=== PATIENT | female | born 1955 | race Caucasian/White ===

== ENCOUNTER 2024-05-18 10:15 | Emergency (ER) | payer MEDICARE, OTHER, SELFPAY ==
--- NOTE | 2024-05-18 10:17 | XRR_ITS ---
PROCEDURE INFORMATION: Exam: XR Right Hip Exam date and time: 05/18/2024 11:09 AM Age: 68 years old Clinical indication: Hip pain; Right hip TECHNIQUE: Imaging protocol: Radiologic exam of the right hip. Views: 1 view hip with pelvis when performed. COMPARISON: No relevant prior studies available. FINDINGS: Bones/joints: No acute fracture or malalignment. No worrisome lytic or blastic lesion. No cortical erosion or periosteal reaction. Mild right hip joint space narrowing and osteophyte formation. Soft tissues: Normal. XR/XR hip RT 2-3V wo/w pel* [id number] IMPRESSION: 1. No acute findings. 2. Mild right hip osteoarthritis.
[2024-05-18 10:35] VITALS: BP 144/69; PULSE 71; RESP 18; TEMP 36.8; O2SAT 99; BMI 28.0
--- NOTE | 2024-05-18 10:39 | XRR_ITS ---
PROCEDURE INFORMATION: Exam: XR Right Knee Exam date and time: 05/18/2024 11:04 AM Age: 68 years old Clinical indication: Pain; Knee; Right; Additional info: Knee pain TECHNIQUE: Imaging protocol: Radiologic exam of the right knee. Views: 3 views. COMPARISON: No relevant prior studies available. FINDINGS: Bones/joints: No acute fracture or malalignment. Cwlo-tc-[id number] tricompartmental joint space narrowing and osteophyte formation, most prominently in the patellofemoral compartment. Soft tissues: No joint effusion. No soft tissue abnormality. XR/XR knee RT 3V* [id number] IMPRESSION: 1. No acute abnormality. 2. Spng-sy-rigycfag knee osteoarthritis.
[2024-05-18] MEDS: HYDROcodone-acetaminophen 5-325 mg Tablet 1 TAB PO (10:42)
--- NOTE | 2024-05-18 10:47 | ED_ITS ---
HPI - Extremity Problem General: Chief complaint: Extremity Problem,Nontraumatic Stated complaint: rt hip pain Time Seen by Provider: 05/18/24 10:32 Source: patient Mode of arrival: ambulatory Limitations: no limitations History of Present Illness: 68-year-old female states that she has c hronic hip pain states she sees an orthopedist in [place] has had an MRI states she has not qualified for s urgery but states that over the last 5 to 6 days she has been having right knee pain now as well states pain sharp in nature seems to radiate in her hip states its much worse with ambulation she really has no pain at rest denies any fevers denies any injury Associated symptoms: Deny chest pain, fever(s) or rash Related Data Home Medications Medication Instructions Recorded Confirmed lisinopril 10 mg tablet 10 mg PO DAILY 05/18/24 05/18/24 meloxicam 15 mg tablet 15 mg PO DAILY 05/18/24 05/18/24 omeprazole 20 mg capsule,delayed 20 mg PO DAILY 05/18/24 05/18/24 release rosuvastatin 5 mg tablet 5 mg PO DAILY 05/18/24 05/18/24 Previous Rx's Medication Instructions Recorded naproxen 500 mg tablet (Naprosyn) 500 mg PO BID PRN pain #20 tabs 05/18/24 Allergies Allergy/AdvReac Type Severity Reaction Status Date / Time No Known Allergies Allergy Verified 05/18/24 10:39 Review of Systems Const: Denies: fever(s), chills, body aches or change in appetite ENMT: Denies: throat pain or dental pain Card: Denies: chest pain Resp: Denies: dyspnea GI: Denies: abdominal pain, nausea, vomiting or diarrhea Musc: Reports: extremity pain; Denies: neck pain or back pain Skin/Breast: Denies: rash Neuro: Denies: headache(s) Physical Exam Const: COMMON NORMALS: no acute distress, patient oriented x3 and healthy appearing HENMT: COMMON NORMALS: normocephalic and atraumatic HEAD & SCALP: normocephalic and atraumatic Eye: COMMON NORMALS: conjunctivae normal CONJUNCTIVA: Yes conjunctivae normal Neck/C-Spine: COMMON NORMALS: full ROM and supple Chest: COMMONS NORMALS: normal inspection of the chest Resp: COMMON NORMALS: normal respiratory effort Cardio: COMMON NORMALS: regular rate, regular rhythm and No murmurs present (Cardio) RATE: regular rate RHYTHM: regular rhythm Extremity: COMMON NORMALS: normal to inspection and full ROM NARRATIVE EXTREMITY EXAM: No tenderness or warmth noted to the right knee does have pain in the hip and knee with range of motion Neuro: COMMON NORMALS: patient oriented x3, moves all extremities and no focal motor deficits Psych: COMMON NORMALS: mental status grossly normal, Normal thought process present and cooperative THOUGHT PROCESS: Normal thought process present Skin: COMMON NORMALS: no rashes or lesions noted and no wounds GENERAL SKIN EXAM: no rashes or lesions noted Course Vital Signs: Vital signs: Vital Signs Temperature 98.3 F 05/18/24 10:35 Pulse Rate 71 05/18/24 10:35 Respiratory Rate 18 05/18/24 10:35 Blood Pressure 144/69 05/18/24 10:35 Pulse Oximetry 99 05/18/24 10:35 Oxygen Delivery Me thod Room Air 05/18/24 10:35 MDM - Extremity (Nontraumatic) Medical Decision Making Patient presents here with hip knee pain imaging shows arthritis no acute fractures her pain here is improved she is stable for discharge follow-up with PCP return if worsening she understands agrees to plan. Lab Data Radiology Impressions Hip/Pelvis X-Ray 05/18/24 10:17 IMPRESSION: 1. No acute findings. 2. Mild right hip osteoarthritis. Knee X-Ray 05/18/24 10:39 IMPRESSION: 1. No acute abnormality. 2. Sbny-hr-ebanytlo knee osteoarthritis. All radiology interpretation(s) finalized by discharge Discharge Plan Discharge Patient Disposition: Home Clinical Impression: Hip pain, right Condition: Stable Prescriptions: New naproxen [Naprosyn] 500 mg tablet 500 mg PO BID PRN (Reason: pain) Qty: 20 0RF No Action meloxicam 15 mg tablet 15 mg PO DAILY lisinopril 10 mg tablet 10 mg PO DAILY omeprazole 20 mg capsule,delayed release(DR/EC) 20 mg PO DAILY rosuvastatin 5 mg tablet 5 mg PO DAILY Discharge Orders: Discharge ED (Routine); Ordered 05/18/24 Ordered By: Victor Hugo Saavedra Referrals: Chase Cuadra MD [Family Provider] - Discharge Diet: Advance as tolerated Discharge Activity: Resume usual activity Patient Instructions: Hip Pain (ED) Coding Level of Care Code ED Banquet Captain for Ranjit Mata
[2024-05-18] MEDS: dexamethasone 10 mg/mL INJ IM (10:51)
--- NOTE | 2024-05-18 11:35 | PC.NURSE ---
pt smiling and states pain is much better after medications, pt continues to rate pain 8 however, but pt states much better, defiantly helped.
[2024-05-18 12:13] VITALS: BP 115/61; PULSE 58; O2SAT 98
== END 2024-05-18 12:14 | disposition home or self-care (01) ==
PROVIDERS: Emergency Provider Emergency Medicine
DX: M25.551 Pain in right hip (principal)
CPT/HCPCS: 73502; 73562; 96372; 99284; J1100

== ENCOUNTER 2024-08-03 13:10 | Emergency (ER) | payer MEDICARE, SELFPAY ==
[2024-08-03] VITALS (15 sets, daily range): BP systolic 100–165; BP diastolic 53–107; PULSE 78–100; RESP 12–23; TEMP 36.4–36.8; O2SAT 92–100
--- NOTE | 2024-08-03 13:23 | ECG_ITS ---
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: : 1955 Requested By: Victor Hugo Saavedra Order Number: [id number] Reading MD: ISAAC WOODS Measurements Intervals [place] Rate: 90 P: 37 NM: 178 QRS: 4 QRSD: 80 T: 49 QT: 332 QTc: 408 Interpretive Statements SINUS RHYTHM WITH SINUS ARRHYTHMIA LOW QRS VOLTAGE IN PRECORDIAL LEADS [QRS DEFLECTION < 1.0 mV IN CHEST LEADS] MODERATE VOLTAGE CRITERIA FOR LVH, CONSIDER NORMAL VARIANT [MEETS CRITERIA IN ONE OF: R(aVL), S(V1), R(V5), R(V5/V6)+S(V1)] NONSPECIFIC T-WAVE ABNORMALITY No previous ECG available for comparison Electronically Signed On 08-04-2024 18:08:32 CDT by ISAAC WOODS [email or web address]
--- NOTE | 2024-08-03 13:38 | W.ED.DIZZY ---
HPI - Dizziness General: Chief Complaint: Dizziness Stated Complaint: lightheaded, pain in head Time Seen by Provider: 08/03/24 13:25 Source: patient and family Mode of arrival: wheelchair Limitations: no limitations History of Present Illness: HPI Narrative: Patient is a 68-year-old female with a history of hypertension, hyperlipidemia, GERD here with family for a few different concerns, most of which is lightheadedness. Patient also was complaining of some lower back pain, right sided temporal headache, upper abdominal pain, nausea, and decreased appetite. She states yesterday they were in [employer] dress shopping for her granddaughter and patient began noticing she was feeling slightly nauseous and started having some right upper abdominal pain. She also had some mild lightheadedness. She states they went out for lunch and she did not have much of an appetite and barely ate. She feels like her lightheadedness slowly got worse during the evening and was present when she woke up this morning. She feels like symptoms are worse with positional changes. She states she has a chronic history of right-sided sciatica pain but is now having pain on the left side as well. Denies numbness, tingling, loss of sensation to her legs. She has not noticed any color or temperature changes of her extremities. Patient is not had any vomiting. Bowel movements overall have been fairly normal although she has not had one today. Previous abdominal surgeries include an appendectomy. Patient takes omeprazole daily for her acid reflux/GERD. She has not had any hematemesis or black or tarry stools. Patient arrives in no acute distress with stable vital signs. She has no complaints of chest pain, shortness of breath, palpitations. No recent medication changes. MD elicited complaint: lightheadedness Onset (ago): day(s) (yesterday) Timing: gradual onset Severity: moderate Description: sense of movement, room spinning and lightheadedness History of similar symptoms: No Exacerbating factors: movement/ambulation and change in body position Relieving factors: remaining still Associated symptoms: Reports no associated symptoms, headache(s) (mild R temporal) and nausea; Denies chest pain, chills, malaise, palpitations, syncope or vomiting Associated neuro symptoms: Reports no associated symptoms; Deny numbness in extremities Stroke scale total: 0 Related Data Home Medications ?Medication ?Instructions ?Recorded ?Confirmed meloxicam 15 mg tablet 15 mg PO DAILY 05/18/24 08/03/24 omeprazole 20 mg capsule,delayed 20 mg PO DAILY 05/18/24 08/03/24 release rosuvastatin 5 mg tablet 5 mg PO DAILY 05/18/24 08/03/24 losartan 50 mg tablet 50 mg PO DAILY 08/03/24 08/03/24 magnesium 250 mg tablet 500 mg PO DAILY 08/03/24 08/03/24 Allergies Allergy/AdvReac Type Severity Reaction Status Date / Time No Known Allergies Allergy Verified 08/03/24 13:19 Review of Systems Const: Denies: fever(s), chills, body aches, fatigue or malaise Eyes: Denies: change in vision, blurry vision, photophobia, eye discomfort or eye discharge Card: Denies: chest pain, palpitations, irregular heart rhythm, edema, lightheadedness, syncope, pre-syncope or dyspnea on exertion Resp: Denies: dyspnea, productive cough or pain on inspiration GI: Reports: abdominal pain, nausea and heartburn (chronic); Denies: vomiting or diarrhea : Denies: flank pain, difficulty voiding, dysuria, urinary frequency, urinary urgency or urinary hesitancy Musc: Reports: back pain; Denies: neck pain, extremity pain, extremity swelling, joint pain or joint swelling Skin/Breast: Denies: rash Neuro: Reports: headache(s) (mild R temporal); Denies: numbness in extremities, weakness in extremities or sensory changes Physical Exam Const: COMMON NORMALS: no acute distress, average body habitus, patient oriented x3, no limitations, healthy appearing, alert and well nourished GENERAL APPEARANCE: cooperative ORIENTATION/CONSCIOUSNESS: Yes awake, Yes oriented to person, Yes oriented to place and Yes oriented to time HENMT: COMMON NORMALS: normocephalic and atraumatic HEAD & SCALP: normal to inspection, normocephalic and atraumatic FACE & SINUS: normal facial exam and face symmetric Eye: COMMON NORMALS: Equal, round and reactive pupils present and EOMs intact bilaterally GENERAL EYE: appearance normal, both eyes and all related structures and normal light reflex PUPIL: Yes Equal, round and reactive pupils present DIRECT OPHTHALMOSCOPY: Yes normal light reflex OTHER: mild horizontal nystagmus Neck/C-Spine: COMMON NORMALS: full ROM, no lymphadenopathy, supple and no meningeal signs Chest: COMMONS NORMALS: normal inspection of the chest Resp: COMMON NORMALS: normal respiratory effort and clear to auscultation bilaterally AUSCULTATION: clear to auscultation bilaterally Cardio: COMMON NORMALS: regular rate and regular rhythm RATE: regular rate RHYTHM: regular rhythm GI: COMMON NORMALS: Normal to inspection, nondistended, normoactive bowel sounds present, Soft to palpation, No hepatosplenomegaly present and no masses INSPECTION: Yes normal to inspection AUSCULTATION: Yes normoactive bowel sounds PALPATION: Yes Soft to palpation, Yes Tenderness to palpation present (GI) (across upper abdomen), No Guarding due to palpation present (GI), No Rigid due to palpation and Yes No hepatosplenomegaly present RECTAL EXAM: visual inspection normal and heme positive stool : COMMON NORMALS: Yes no CVA tenderness BLADDER/KIDNEY EXAM: Yes no CVA tenderness Back/Pelvis: COMMON NORMALS: no CVA tenderness, thoracic and lumbar spine normal to inspection, no thoracic nor lumbar tenderness, thoraco-lumbar ROM normal and straight leg raise negative bilaterally PELVIS: Yes buttocks normal SACROILIAC JOINTS: Yes SI joint(s) abnormal (bilateral tenderness) Extremity: COMMON NORMALS: normal to inspection GENERAL: Yes normal exam except as noted Neuro: JOSHUA COMA SCALE: document GCS findings Joshua coma scale eye opening: Spontaneous Joshua coma scale verbal response: Orientated [place] coma scale motor response: Obey commands [place] coma scale total score: 15 COMMON NORMALS: patient oriented x3, CN's II-XII intact bilaterally, moves all extremities, no focal motor deficits and no sensory deficits noted SENSORIUM/ORIENTATION: Yes alert, Yes oriented to person, Yes oriented to place and Yes oriented to time MENINGEAL SIGNS: Yes no meningeal signs Skin: COMMON NORMALS: no rashes or lesions noted GENERAL SKIN EXAM: no rashes or lesions noted Course Consultations: Consultation #1: Dr. Vasquez-evaluated patient here in the emergency department; agreed to consult while she is inpatient and will plan on EGD in the morning; clear liquids until midnight and then NPO Consultation #2: Dr. La-accepts hospitalization Vital Signs: Vital signs: Vital Signs Temperature 97.9 F 08/03/24 13:15 Pulse Rate 91 08/03/24 13:15 Respiratory Rate 16 08/03/24 13:15 Blood Pressure 111/77 08/03/24 13:15 Pulse Oximetry 100 08/03/24 13:15 Oxygen Delivery Me thod Room Air 08/03/24 13:15 MDM - Dizziness Medical Decision Making Patient is a very nice 68-year-old female presents to ED today along with family for a few concerns, most of which is lightheadedness beginning yesterday. Patient arrives with stable vital signs. She was found to be significantly anemic with a hemoglobin of 7.0. No previous studies for comparison. She had originally reported no hematemesis or black or tarry stools however later states she noticed her stool was dark yesterday. She states she normally does not visualize her stool. Patient believes she is up-to-date on her colonoscopy although is unsure of the exact date. No family history of colon cancer. She is not on anticoagulation. Remainder of blood work is nonactionable-did have elevated to BUN. CT scan showing liver cirrhosis with prominent esophageal varices. She has not had any hematemesis. I spoke to general surgery, De. Vasquez who evaluated patient here in ED and feels we can keep her here for EGD tomorrow morning. Spoke to hospitalist, Dr. La for admission. Dr. Valle aware of patient and will place admit orders. Medical Records I reviewed the patient's medical records. Lab Data I reviewed the patient's lab results. 08/03/24 13:49 08/03/24 13:49 Radiology Impressions Abdomen/Pelvis CT 08/03/24 14:41 IMPRESSION: 1. No evidence of acute abnormality in the abdomen or pelvis. 2. Hepatic cirrhosis with prominent esophageal varices. No significant ascites. 3. Moderate-severe narrowing of the renal arteries, left worse than right, secondary to atherosclerotic plaque. Consider follow-up outpatient vascular evaluatiion. Laboratory Results WBC 8.15 10^3/uL (3.29-11.43) 08/03/24 13:49 RBC 2.69 10^6/uL (3.85-5.65) L 08/03/24 13:49 Hgb 7.00 g/dL (11.27-16.99) L 08/03/24 13:49 Hct 22.5 % (36-47) L 08/03/24 13:49 MCV 83.6 fl (85-98) L 08/03/24 13:49 MCH 26.0 pg (27-33) L 08/03/24 13:49 MCHC 31.1 g/dL (30-55) 08/03/24 13:49 RDW 14.2 % (12.1-15.1) 08/03/24 13:49 Plt Count 186 10^3/cmm (157-399) 08/03/24 13:49 MPV 10.8 fL (7.4-10.4) H 08/03/24 13:49 Neut % (Auto) 67.0 % 08/03/24 13:49 Lymph % (Auto) 24.0 % 08/03/24 13:49 Tripp % (Auto) 7.0 % 08/03/24 13:49 Eos % (Auto) 1.0 % 08/03/24 13:49 Baso % (Auto) 0.5 % 08/03/24 13:49 Neut # (Auto) 5.46 10^3/uL (1.8-7.7) 08/03/24 13:49 Lymph # (Auto) 2.0 10^3/uL (0.8-4.8) 08/03/24 13:49 Tripp # (Auto) 0.6 10^3/uL (0.2-0.9) 08/03/24 13:49 Eos # (Auto) 0.1 10^3/uL (0.0-0.8) 08/03/24 13:49 Baso # (Auto) 0.0 10^3/uL (0.0-0.1) 08/03/24 13:49 Nucleated RBC % (auto) 0 % 08/03/24 13:49 Nucleated RBCs # 0.0 /100WBC 08/03/24 13:49 Sodium 137 mmol/L (136-145) 08/03/24 13:49 Potassium 4.5 mmol/L (3.5-5.1) 08/03/24 13:49 Chloride 104 mmol/L (98-107) 08/03/24 13:49 Carbon Dioxide 23 mmol/L (22-29) 08/03/24 13:49 Anion Gap 14.5 (5-19) 08/03/24 13:49 BUN 36 mg/dL (8-23) H 08/03/24 13:49 Creatinine 0.7 mg/dL (0.5-0.9) 08/03/24 13:49 GFR Calculation 83.0 mL/min (90-130) L 08/03/24 13:49 Glucose 114 mg/dL (65-115) 08/03/24 13:49 Calculated Osmolality 293 mOsm/kg (285-295) 08/03/24 13:49 Calcium 8.6 mg/dL (8.5-10.5) 08/03/24 13:49 Iron 96 ug/dL (37-145) 08/03/24 13:49 TIBC 335 mcg/dl 08/03/24 13:49 % Saturation 28.6 % (20-50) 08/03/24 13:49 Unsat Iron Binding 239 ug/dL (112-347) 08/03/24 13:49 Ferritin 17 ng/mL (15-150) 08/03/24 13:49 Total Bilirubin 0.4 mg/dL (0.15-1.2) 08/03/24 13:49 AST 22 U/L (0-32) 08/03/24 13:49 ALT 14 U/L (0-33) 08/03/24 13:49 Alkaline Phosphatase 63 U/L (35-105) 08/03/24 13:49 Total Protein 6.1 g/dL (6.6-8.7) L 08/03/24 13:49 Albumin 3.7 g/dL (3.5-5.2) 08/03/24 13:49 Globulin 2.4 g/dL (1.3-4.6) 08/03/24 13:49 Lipase 36 U/L (13-60) 08/03/24 13:49 Urine Color Yellow (Yellow) 08/03/24 14:40 Urine Appearance Clear (CLEAR) 08/03/24 14:40 Urine pH 6.0 (5-7) 08/03/24 14:40 Ur Specific [place] 1.023 (1.005-1.030) 08/03/24 14:40 Urine Protein Negative (Negative) 08/03/24 14:40 Urine Glucose (UA) Negative (Normal) 08/03/24 14:40 Urine Ketones Negative (Negative) 08/03/24 14:40 Urine Blood Negative (Negative) 08/03/24 14:40 Urine Nitrate Negative (Negative) 08/03/24 14:40 Urine Bilirubin Negative (Negative) 08/03/24 14:40 Urine Urobilinogen 0.2 mg/dL (Negative) 08/03/24 14:40 Ur Leukocyte Esterase 1+ (Negative) A 08/03/24 14:40 Urine RBC 0-2 /hpf (0-2) 08/03/24 14:40 Urine WBC 0-5 /hpf (0-5) 08/03/24 14:40 Ur Squamous Epith Cells 6-10 /hpf (0-5) 08/03/24 14:40 Amorphous Sediment Not Reportable 08/03/24 14:40 Urine Bacteria None seen /hpf (NONE) 08/03/24 14:40 Hyaline Casts 0.40 /lpf 08/03/24 14:40 Blood Type B Positive 08/03/24 15:29 Rho(D) Type Rh positive 08/03/24 15:29 Antibody Screen Negative 08/03/24 15:29 Crossmatch See Detail 08/03/24 15:29 All radiology interpretation(s) finalized by discharge Discharge Plan Discharge Patient Disposition: Admitted As Inpatient Clinical Impression: Upper gastrointestinal bleeding Anemia Qualifiers: Anemia type: unspecified type Qualified Code(s): D64.9 - Anemia, unspecified Condition: Stable Coding Level of Care Code ED Public Health Assistant for Ranjit Mata
[2024-08-03] MEDS: sodium chloride 0.9% 1,000 ML 999 ML IV (14:13)
[2024-08-03] MEDS: meclizine 25 mg tablet 50 MG PO (14:13)
[2024-08-03 14:15] LABS: Basophils % 0.5 %; Eosinophils # 0.1 10^3/uL (0.0-0.8); Hematocrit 22.5 % (36-47); Mean Corpuscular HGB Conc 31.1 g/dL (30-55); Mean Corpuscular Volume 83.6 fl (85-98); Mean Platelet Volume 10.8 fL (7.4-10.4); Monocytes # 0.6 10^3/uL (0.2-0.9); Neutrophils # 5.46 10^3/uL (1.8-7.7); Nucleated Red Blood Cells % 0 %; Platelet Count 186 10^3/cmm (157-399); Red Blood Count 2.69 10^6/uL (3.85-5.65); Red Cell Distribution Width 14.2 % (12.1-15.1); White Blood Count 8.15 10^3/uL (3.29-11.43)
[2024-08-03] MEDS: ondansetron 2 mg/ML SDV 2 mL 4 MG IVP (14:15)
[2024-08-03 14:37] LABS: Alanine Aminotransferase 14 U/L (0-33); Albumin Level 3.7 g/dL (3.5-5.2); Alkaline Phosphatase 63 U/L (35-105); Anion Gap 14.5 (5-19); Aspartate Amino Transferase 22 U/L (0-32); Blood Urea Nitrogen 36 mg/dL (8-23); Calcium 8.6 mg/dL (8.5-10.5); Carbon Dioxide 23 mmol/L (22-29); Chloride 104 mmol/L (98-107); Globulin 2.4 g/dL (1.3-4.6); Glucose 114 mg/dL (65-115); Lipase 36 U/L (13-60); Osmolality Calculated 293 mOsm/kg (285-295); Potassium 4.5 mmol/L (3.5-5.1); Sodium 137 mmol/L (136-145); Total Bilirubin 0.4 mg/dL (0.15-1.2); Total Protein 6.1 g/dL (6.6-8.7)
--- NOTE | 2024-08-03 14:41 | CTR_ITS ---
PROCEDURE INFORMATION: Exam: CT Abdomen And Pelvis With Contrast Exam date and time: 08/03/2024 2:54 PM Age: 68 years old Clinical indication: Abdominal pain; Localized; Right upper quadrant (ruq); Prior surgery; Surgery date: 6+ months; Surgery type: Appy; Additional info: Upper abdominal pain, lightheaded, hemoglobin 7.0 TECHNIQUE: Imaging protocol: Computed tomography of the abdomen and pelvis with contrast. Radiation optimization: All CT scans at this facility use at least one of these dose optimization techniques: automated exposure control; mA and/or kV adjustment per patient size (includes targeted exams where dose is matched to clinical indication); or iterative reconstruction. Contrast material: OMNI 350; Contrast volume: 100 ml; Contrast route: INTRAVENOUS (IV); COMPARISON: CR XR hip RT 2-3V wo/w pel* [id number] 05/18/2024 11:09 AM RADIATION DOSE METRICS: Total DLP (mGy-cm): 835.13 FINDINGS: Lungs: Subsegmental bibasilar atelectasis. The visualized lung bases are otherwise grossly clear. Diaphragm: Small hiatal hernia with the GE junction above the diaphragm. Liver: Nodularity of the liver contour compatible with hepatic cirrhosis. There are esophageal varices with mild thickening of the distal esophagus. No significant ascites. Gallbladder and biliary ducts: Unremarkable. No intra-hepatic or extra-hepatic biliary dilatation. Pancreas: Unremarkable. Spleen: Unremarkable. Adrenal glands: Unremarkable. Kidneys and ureters: No renal parenchymal abnormality. No hydronephrosis or ureteral stone. Stomach and bowel: No evidence of bowel obstruction or perienteric inflammatory changes. Appendix: The appendix is not visualized, however there are no findings to suggest appendicitis. Intraperitoneal space: No evidence of free air or fluid collection. Vasculature: Moderate aortobiiliac atherosclerosis without aneurysmal dilatation or dissection. Moderate-severe narrowing of the renal arteries, left worse than right, secondary to atherosclerotic plaque. Consider follow-up outpatient vascular evaluatiion. Mild-moderate narrowing of the origins of the celiac trunk and SMA. No evidence of IVC thrombus. The portal vein, SMV and splenic veins are grossly patent. Lymph nodes: No adenopathy. Urinary bladder: Grossly unremarkable. Reproductive: Grossly unremarkable. Bones/joints: No evidence of acute fracture or aggressive osseous lesion. Soft tissues: No evidence of fluid collection or hematoma in the superficial soft tissues. CT/CT abdomen pelvis w con* [id number] IMPRESSION: 1. No evidence of acute abnormality in the abdomen or pelvis. 2. Hepatic cirrhosis with prominent esophageal varices. No significant ascites. 3. Moderate-severe narrowing of the renal arteries, left worse than right, secondary to atherosclerotic plaque. Consider follow-up outpatient vascular evaluatiion.
[2024-08-03 14:54] LABS: Bilirubin Urine Negative (Negative); Blood Urine Negative (Negative); Glucose Urine UA Negative (Normal); Ketones Urine Negative (Negative); Leukocyte Esterase Urine 1+ (Negative); Nitrate Urine Negative (Negative); Protein Urine Negative (Negative); Specific Gravity, Urine 1.023 (1.005-1.030); Urine Appearance Clear (CLEAR); Urine Color Yellow (Yellow); Urobilinogen Urine 0.2 mg/dL (Negative)
[2024-08-03 14:57] LABS: Add Urine Microscopic? YES; Bacteria Urine None Seen /hpf; RBC Urine 0-2 /hpf (0-2); WBC Urine 0-5 /hpf (0-5)
[2024-08-03] MEDS: iohexol 350 mg/mL 500 mL Btl (per mL) IV (14:58)
[2024-08-03 15:38] LABS: Ferritin 17 ng/mL (15-150); Iron 96 ug/dL (37-145); Percent Saturation 28.6 % (20-50); Total Iron Binding Capacity 335 mcg/dl; Unsaturated Iron Binding 239 ug/dL (112-347)
--- NOTE | 2024-08-03 17:24 | PM.CONSULT ---
Providers/Reason For Consult Consulting Physician/Specialty*: General Surgery Reason for Consult*: Possible upper GI bleeding History of Present Illness History of Present Illness Ifrah Trujillo is a 68 year old female who presents to the ER with dizziness and nausea. She also have black stool about 2 days ago. No hematemesis, normal vital signs. According to the patient she started to have dizziness about 2 to 3 days ago, she has felt very weak and nauseous over this timeframe. Denies active blood in the stool but she did have an episode of almost black stool about 2 days ago. Review of Systems General: Reports: 10 or more systems reviewed and unremarkable except in HPI and below Medications/Allergies Home Medications ?Medication ?Instructions ?Recorded ?Confirmed ?Last Taken ?Type meloxicam 15 mg tablet 15 mg PO DAILY 05/18/24 08/03/24 08/02/24 History omeprazole 20 mg capsule,delayed 20 mg PO DAILY 05/18/24 08/03/24 08/02/24 History release rosuvastatin 5 mg tablet 5 mg PO DAILY 05/18/24 08/03/24 08/02/24 History losartan 50 mg tablet 50 mg PO DAILY 08/03/24 08/03/24 08/02/24 History magnesium 250 mg tablet 500 mg PO DAILY 08/03/24 08/03/24 08/02/24 History Allergies Allergy/AdvReac Type Severity Reaction Status Date / Time No Known Allergies Allergy Verified 08/03/24 13:19 Vitals/I&O/Wt Last Vital Signs Temp 97.9 F 08/03/24 13:15 Pulse 91 08/03/24 13:15 Resp 16 08/03/24 13:15 BP 111/77 08/03/24 13:15 Pulse Ox 100 08/03/24 13:15 O2 Del Method Room Air 08/03/24 13:15 Weight last 48 hrs Weight 200 lb Physical Exam Narrative: Abdomen examination shows a abdomen that is soft, nontender nondistended. Data 08/03/24 13:49 08/03/24 13:49 A&P Assessment and plan (1) Upper gastrointestinal bleeding: (2) Anemia: Qualifiers: Anemia type: unspecified type Qualified Code(s): D64.9 - Anemia, unspecified Plan After complete history, physical examination and review of all available clinical data the following is my assessment. This is a 68-year-old female who presents with a possible upper GI bleeding in the setting of newly diagnosed cirrhosis and possible esophageal varices. Due to clinical presentation I do not suspect large-volume active GI bleeding as patient is clinically stable and her symptoms are mild. Taking this in consideration I have decided to offer her upper endoscopy for evaluation for upper GI bleeding, with a compromise that if variceal bleeding is identified we will have to stop endoscopy and transfer her to higher level of care for ligation or sclerotherapy that cannot be done at our facility. Patient will be evaluated by the medical team for admission and stabilization over the next 24 hours, she will be started on a high-dose PPI. Due to history of newly diagnosed cirrhosis and possible esophageal varices I will recommend consideration for an octreotide drip As it has been shown to be a good option in patients with liver disease with GI bleeding. I discussed all recent benefits of the upper endoscopy including the risk of perforation, need to transfer to higher level of care, lack of source control due to major bleeding, rebleeding, injury to soft tissue of the mouth and pharynx. Once upper GI bleeding has been ruled out and if it is under control patient will require outpatient follow-up with GI for management of liver cirrhosis and possible repeat endoscopy with banding of esophageal varices and colonoscopy can also be done at the time. Case will be booked for tomorrow. Will continue to monitor serial hemoglobin levels. PDMP PDMP Reviewed: Not Reviewed Coding Level of Care Code Acute Code for Chg Fwd Diagnoses Upper gastrointestinal bleeding K92.2 Anemia D64.9 Anemia type: unspecified type
[2024-08-03] MEDS: pantoprazole 40 mg SDV IVP (18:10)
--- NOTE | 2024-08-03 18:12 | PM.HP ---
Providers/Chief Complaint Chief Complaint: lightheaded, pain in head History of Present Illness Ifrah Trujillo is a 68 year old female with a past medical history of hypertension, left-sided sciatica, back pain, who presents [facility] for lightheadedness, dizziness, fatigue, malaise. Currently patient is alert awake, following all commands, she tells me for the last week she has been having progressive fatigue, malaise notes been progressively worsening. She went to [place] yesterday and she tells me that the trip was very tiring for her she had tiredness and fatigue intermittent dizziness with exertion, no chest pain, no palpitations yesterday she did endorse an episode of black tarry stool she has been using meloxicam daily for her back pain and her sciatica. She tells me that overnight, she had a significant episode of dizziness, that improved with rest, again at 2 AM she woke up with significant dizziness upon exertion, so she went back to bed, and then again at 9 AM, significant episodes of dizziness upon exertion. Denies any strokelike symptoms no facial droop, no slurring of words, no focal weakness, no lightheadedness, no dizziness, no trouble coordinating, she denies a history of strokes, she denies any history of alcoholism, history of hepatitis C, does have obesity, does have family history of obesity related fatty liver disease. She does report recent belching and bloating that has been frequently happening, nonspecific abdominal pain. In the emergency room she was found to have a hemoglobin of 7, complains of black tarry stool CT scan abdomen pelvis shows evidence of liver cirrhosis with esophageal varices. She denies any hemoptysis no hematemesis no history of alcoholism no history of hepatitis. She has been seen by general surgery for consideration EGD. patient's family and patient are deciding if they want their workup to be done here at [facility] or to be transferred to tertiary level center. Their concern is that if her esophageal varices need band ligation she will need to be transferred, as we do not have this capability here at [facility]. Discussed with him the risk and benefits of transfer, they voiced understanding, all questions answered. In addition we do not have a GI specialist for her evidence of liver cirrhosis. Family is going to have a discussion with patient, about if they want to be transferred or not. Review of Systems Const: Reports: fatigue and malaise Card: Denies: chest pain Resp: Denies: dyspnea GI: Reports: abdominal pain : Denies: flank pain Medications/Allergies Home Medications ?Medication ?Instructions ?Recorded ?Confirmed ?Last Taken ?Type meloxicam 15 mg tablet 15 mg PO DAILY 05/18/24 08/03/24 08/02/24 History omeprazole 20 mg capsule,delayed 20 mg PO DAILY 05/18/24 08/03/24 08/02/24 History release rosuvastatin 5 mg tablet 5 mg PO DAILY 05/18/24 08/03/24 08/02/24 History losartan 50 mg tablet 50 mg PO DAILY 08/03/24 08/03/24 08/02/24 History magnesium 250 mg tablet 500 mg PO DAILY 08/03/24 08/03/24 08/02/24 History Allergies Allergy/AdvReac Type Severity Reaction Status Date / Time No Known Allergies Allergy Verified 08/03/24 13:19 PFSH Acute PFSH: Medical History (Updated 08/03/24 @ 18:17 by Renny La MD) History of hypertension Surgical History (Updated 08/03/24 @ 18:16 by Renny La MD) History of appendectomy Family History (Updated 08/03/24 @ 18:17 by Renny La MD) Father CAD (coronary artery disease) Diabetes mellitus, type 2 Social History (Updated 08/03/24 @ 18:16 by Renny La MD) Smoking and tobacco/nicotine status: never used tobacco/nicotine Alcohol intake: never Substance/Drug Use: never Vitals/I&O/Wt Last Vital Signs Temp 97.9 F 08/03/24 13:15 Pulse 91 08/03/24 13:15 Resp 16 08/03/24 13:15 BP 111/77 08/03/24 13:15 Pulse Ox 100 08/03/24 13:15 O2 Del Method Room Air 08/03/24 13:15 Weight last 48 hrs Weight 90.718 kg Physical Exam Const: COMMON NORMALS: no acute distress and patient oriented x3 HENMT: COMMON NORMALS: normocephalic HEAD & SCALP: normocephalic Resp: COMMON NORMALS: normal respiratory effort, No retractions, No use of accessory muscles and clear to auscultation bilaterally AUSCULTATION: clear to auscultation bilaterally Cardio: COMMON NORMALS: regular rate, regular rhythm, S1 normal heart sound present and S2 normal heart sound present RATE: regular rate RHYTHM: regular rhythm HEART SOUNDS: S1 normal heart sound present and S2 normal heart sound present GI: COMMON NORMALS: Normal to inspection, nondistended, normoactive bowel sounds present, Soft to palpation and non-tender Extremity: COMMON NORMALS: no calf tenderness and no pedal edema Neuro: COMMON NORMALS: patient oriented x3, CN's II-XII intact bilaterally and moves all extremities Psych: COMMON NORMALS: mental status grossly normal Data 08/03/24 13:49 08/03/24 13:49 A&P Assessment and plan (1) Dizziness: (2) Upper gastrointestinal bleeding: (3) Anemia: Qualifiers: Anemia type: unspecified type Qualified Code(s): D64.9 - Anemia, unspecified (4) Liver cirrhosis: (5) Esophageal varices: Plan Dizziness -Likely secondary to acute anemia -Denies any strokelike symptoms, no facial droop, slurring her words, no focal weakness -Nonetheless we will consider CT head Acute anemia, likely secondary to upper GI bleed -Complaints of black tarry stool, Hemoccult positive stool emergency room, hemoglobin 7, recent use of meloxicam daily Plan -transfuse 1 unit prbc -Protonix -Carafate -Octreotide drip -N.p.o. midnight -SCDs for DVT prophylaxis, Lovenox although to tolerate acutely given acute anemia Liver cirrhosis, -Recommend PTT, hepatitis panel, liver ultrasound to evaluate for portal vein thrombus -Will require GI follow-up, liver biopsy Esophageal varices -Will need to follow-up with GI Will await family's decision if they want to be admitted here at [facility] to be transferred to tertiary level center PDMP PDMP Reviewed: Not Reviewed Attestations Medical Necessity Statement*: Patient requires hospitalization for dizziness, acute anemia, liver cirrhosis, esophageal varices Diagnoses Dizziness R42 Upper gastrointestinal bleeding K92.2 Anemia D64.9 Anemia type: unspecified type Liver cirrhosis K74.60 Esophageal varices I85.00
[2024-08-03] MEDS: octreotide 500 MCG in sodium chloride 0.9% (100 ml) 100 ML 10.1 MCG IV (18:13)
[2024-08-03 18:36] LABS: Basophils # 0.1 10^3/uL (0.0-0.1); Basophils % 0.5 %; Eosinophils # 0.1 10^3/uL (0.0-0.8); Eosinophils % 0.9 %; Hematocrit 21.9 % (36-47); Lymphocytes # 3.4 10^3/uL (0.8-4.8); Lymphocytes % 30.4 %; Mean Corpuscular HGB Conc 31.5 g/dL (30-55); Mean Corpuscular Hemoglobin 25.7 pg (27-33); Mean Corpuscular Volume 81.7 fl (85-98); Mean Platelet Volume 10.6 fL (7.4-10.4); Monocytes # 0.7 10^3/uL (0.2-0.9); Monocytes % 6.5 %; Neutrophils # 6.84 10^3/uL (1.8-7.7); Neutrophils % 61.3 %; Nucleated Red Blood Cells % 0 %; Platelet Count 189 10^3/cmm (157-399); Red Blood Count 2.68 10^6/uL (3.85-5.65); Red Cell Distribution Width 14.2 % (12.1-15.1); White Blood Count 11.16 10^3/uL (3.29-11.43)
[2024-08-03 18:45] LABS: INR 1.09 (0.8-1.2); Partial Thromboplastin Time 29.7 SECONDS (23.9-36.7)
[2024-08-03 18:57] LABS: Carcinoembryonic Antigen 5.2 ng/mL (0.0-4.7)
[2024-08-03] MEDS: morphine 4 mg/mL SDV 1 mL IVP (21:51)
== END 2024-08-03 21:57 | disposition admitted as inpatient to this hospital (09) ==
PROVIDERS: Family Medicine; Emergency Provider Physician Assistant
DX: K92.2 Gastrointestinal hemorrhage, unspecified (principal); D64.9 Anemia, unspecified; E78.5 Hyperlipidemia, unspecified; I10 Essential (primary) hypertension
CPT/HCPCS: 36415; 36430; 74177; 80053; 81001; 82378; 82728; 83540; 83550; 83690; 85025; 85610; 85730; 86850; 86900; 86920; 93005; 96361; 96374; 96375; 99285; J2270; J2354; J2405; J2470; J7030; J8597; P9016

== ENCOUNTER → 2024-09-15 09:20 | Outpatient (BNVA) | payer MEDICARE, OTHER, SELFPAY | PROVIDERS: PCP Family Medicine; Referring Provider Family Medicine; Visit Provider Anesthesiology Pain Medicine | DX: M25.561 Pain in right knee (principal); M25.761 Osteophyte, right knee; M17.11 Unilateral primary osteoarthritis, right knee | CPT/HCPCS: 73562; 99204 ==

== ENCOUNTER → 2024-09-22 08:41 | Outpatient (BNVA) | payer MEDICARE, OTHER, SELFPAY | PROVIDERS: PCP Family Medicine; Visit Provider Anesthesiology Pain Medicine | DX: M79.18 Myalgia, other site (principal); M54.9 Dorsalgia, unspecified; M17.11 Unilateral primary osteoarthritis, right knee; M47.26 Other spondylosis with radiculopathy, lumbar region; M51.16 Intervertebral disc disorders with radiculopathy, lumbar region | CPT/HCPCS: 20553; 99214; J1010; J3490 ==

== ENCOUNTER → 2024-10-07 15:14 | Outpatient (BNVA) | payer MEDICARE, OTHER, SELFPAY | PROVIDERS: PCP Family Medicine; Visit Provider Anesthesiology Pain Medicine | DX: M17.11 Unilateral primary osteoarthritis, right knee (principal); M54.9 Dorsalgia, unspecified; M47.816 Spondylosis without myelopathy or radiculopathy, lumbar region; M51.16 Intervertebral disc disorders with radiculopathy, lumbar region | CPT/HCPCS: 20610; 99213; J1010; J3490 ==

== ENCOUNTER 2024-11-13 18:52 | Emergency (ER) | payer MEDICARE, OTHER, SELFPAY ==
--- OUTSIDE RECORDS SUMMARY | 2024-08-28 05:30 | XMS_ITS ---
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 Name Role Phone WagnerNey akins Sharmin [phone] REASON FOR VISIT Cirrhosis Vital Signs Height 70 in 08/28/2024 Weight 189 lbs 08/28/2024 BMI 27.12 kg/m2 08/28/2024 Weight-kg 85.73 kg 08/28/2024 Encounters Encounter Location Date Provider Diagnosis [facility] [address] [facility] [place] [address] 08/28/2024 Ney Wagner Other cirrhosis of liver K74.69 Assessments Encounter Date Diagnosis (ICD Code) Assessment Notes Treatment Notes Treatment Clinical Notes Section Notes 08/28/2024 Other cirrhosis of liver (ICD-10 - K74.69) Plan Of Treatment No Information Progress Notes * JONICHRISTOPHER Ifrah ADOB: [birth year] (68 yo F)Acc No.[id number]:08/28/2024 Patient: Kelly GOODMANbermaryann Burrell Provider: Hernán Wagner MD :1955 A ge:68 Y S ex:Female Date:08/28/2024 Address:[address], [id number] Check In:10:31 AM CSTCheck O 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 Cirrhosis. Objective: * Vitals: H t: 70 in, Wt:189lbs, Wt-k.73 kg, BMI:27.12Index. Assessment: * Assessment: 1. O ther cirrhosis of liver - K74.69 Plan: * Treatment: * Procedure Codes: 9 1200 LIVER ELASTOGRAPHY * Billing Information: * Visit Code: * Procedure Codes: 55740 LIVER ELASTOGRAPHY. * Electronic signature of Will claire Wagner MD on 11/13/2024 at 07:03 PM CDT Sign off status: Pending * Provider: Hernán Wagner MD Date: 0 08/28/2024 Generated for Anabella javier/Raj/Lauren on: 0 11/13/2024 07:03 PM CDT
--- OUTSIDE RECORDS SUMMARY | 2024-10-01 03:50 | XMS_ITS ---
Author Organization [facility] Main Address [address] [place] [address], [place] [address] Care Team Providers [employer] Official Name Role Phone MCKENZIE JENSEN Primary Care Provider Allergies No Known Allergies Results Component Value Reference Range Notes Lipid Panel Reviewed date:10/02/2024 11:45:34 AM Interpretation:Normal Performing Lab: Notes/Report: Draw Location: [facility] Fasting: Yes Testing performed at: [address] [place] [address] CLIA ID [id number] Prothrombin Time INR (finger stick) Reviewed date:10/02/2024 11:45:34 AM Interpretation:Normal Performing Lab: Notes/Report: Draw Location: [facility] Fasting: Yes Testing performed at: [address] [place] [address] CLIA ID [id number] Complete Blood Count w/ Auto Diff (CBC) Reviewed date:10/02/2024 11:45:34 AM Interpretation: Performing Lab: Notes/Report: Draw Location: [facility] Fasting: Yes Testing performed at: [address] [place] [address] CLIA ID [id number] Comprehensive Metabolic Pane l (CMP) Reviewed date:10/02/2024 11:45:34 AM Interpretation: Performing Lab: Notes/Report: Draw Location: [facility] Fasting: Yes Testing performed at: [address] [place] [address] CLIA ID [id number] AMMONIA, PLASMA Reviewed date:10/06/2024 09:52:21 AM Interpretation: Performing Lab: Notes/Report: Draw Location: [facility] Fasting: Yes [facility] Testing performed at: [place] [facility] [address] [place], [address], Garment Examiner: Roscoe Lin MD [facility] Collection Date/Time: [id number] [facility] Results Received Date/Time: [id number] [facility] Reported Date/Time: [id number] AMMONIA (P) 25 < OR = 72 umol/L REASON FOR VISIT last awv 09/19/23, Annual Medicare Wellness visit Medications Medication SIG (Take, Route, Frequency, Duration) Notes Start Date End Date Status FeroSul Active Sertraline HCl 50 MG 1 tablet Orally Onc e a day for 30 days 09/04/2024 Active Magnesium 250 MG 2 tablet with a meal Orally twice a day Not-Taking Rosuvastatin Calcium 5 MG Take 1 tablet by mouth once daily for 90 Active Losartan Potassium 50 MG 1 tablet Orally Once a day for 90 days 05/22/2024 Active Lactulose 10 GM/15ML 30 ML Orally three times a day 09/04/2024 Active PriLOSEC OTC 20 MG 1 tablet 30 minutes before morning meal Orally Once a day for 90 days 06/26/2016 Not-Taking Pantoprazole Sodium 40 MG 1 tablet 1/2 t o 1 hour before morning meal Orally Once a day Active Vitamin Not -Taking Carvedilol 3.125 MG 1 tablet with food Orally Twice a day 09/04/2024 Active traZODone HCl 50 MG 1 tablet at bedtime as needed Oral Once a day for 30 days 07/26/2023 Not-Taking Meloxicam 15 MG Take 1 tablet by carley once daily for 30 Not-Taking Omeprazole 20 MG TAKE 1 CAPSULE BY MO [facility] IN THE MORNING 30 MINUTES BEFORE MORNING MEAL for 90 Not-Taking Naproxen 500 MG 1 tablet with food o r milk as needed Orally every 12 hrs 05/22/2024 Not-Taking Social History Tobacco Use: Social History Observation Description Date Details (start date - stop date) Never Smoker NA - NA PHQ-2 Question Answer Notes Little interest or pleasure in doing things? Not at all Feeling down, depressed, or hopeless? Not at all 10/01/24 Total Score 0 Tobacco Control (Standard) Question Answer Notes Tobacco use: Nonsmoker Problems Problem Type SNOMED Code ICD Code Onset Dates Problem Status W/U Status Risk Notes Problem 701976956 BMI 25.0-25.9,ad ult (Z68.25) Active confirmed Vital Signs Weight 179 lbs 10/01/2024 Height 70 in 10/01/2024 Blood pressure systolic 138 mm Hg 10/02/19 25 Blood pressure diastolic 64 mm Hg 025 Heart Rate 52 /min 10/01/2024 Oximetry 95 % 10/01/2024 BMI 25.68 kg/m2 10/01/2024 Weight-kg 81.19 kg 10/01/2024 Encounters Encounter Location Date Provider Diagnosis [facility] Main [address] [place] [address] 10/01/2024 MCKENZIE JENSEN Medicare annual wellness visit, subsequent Z00.00 ; Chronic kidney disease, stage 2 (mild) N18.2 ; Obstructive sleep apnea (adult) (pediatric) G47.33 ; Cirrhosis of liver without ascites, unspecified hepatic cirrhosis type K74.60 ; Portal hypertension K76.6 ; Mixed hyperlipidemia E78.2 ; Varicose veins of left lower extremity with pain I83.812 ; Gastro-esophageal reflux disease without esophagitis K21.9 ; Essential (primary) hypertension I10 ; BMI 25.0-25.9,adult Z68.25 ; Acute anemia D64.9 ; Sleep difficulties G47.9 ; Increased ammonia level R79.89 ; Hepatic encephalopathy K76.82 ; Encounter for screening for depression Z13.31 and Liver fibrosis K74.00 Assessments Encounter Date Diagnosis (ICD Code) Assessment Notes Treatment Notes Treatment Clinical Notes Section Notes 10/01/2024 Medicare annual wellness visit, subsequent (ICD-10 - Z00.00) We reviewed the Medicare prevention and screening guidelines with the patient. Any services/screenin gs for which the patient was eligible were discussed and offered to the patient today (see orders for details). The patient was counseled regarding healthy lifestyle choices as well as avoiding accidents and injuries in their home. The patient's questions asked and answered. We formulated plans specific to their overall risk factors and discussed plan of care for existing chronic conditions. Labs ordered and/or reviewed. Follow up 12 months for AWV. 10/01/2024 Chronic kidney disease, stage 2 (mild) (ICD-10 - N18.2) Your lab values indicate some degree of kidney impairment, which is referred to as chronic kidney disease (CKD). The diagnosis and level of kidney dysfunction is determined by lab values. Milder levels of CKD are VERY COMMON in persons over 60...in fact, the vast majority of persons over 60 have at least mild impairment that is age-related, and unlikely to progress to more severe disease, if properly managed. One measure of kidney function is a creatinine level. Creatinine is a muscle breakdown product that can vary widely according to age, gender, and muscle mass. For this reason, measuring creatinine alone is not a reliable evaluation of kidney function across diverse populations. The easiest and most reliable measure for evaluating kidney function is called the glomerular filtration rate (GFR) which can be estimated (eGFR) by a persons' lab creatinine level, age, gender and (according to some authorities) race. Most labs (including ours) will automatically generate an eGFR on every patient who has a creatinine level measured, and will provide both eGFRAA () and eGFRNAA (non-), since race demographics are not always readily available to the clinical lab equipment. A normal eGFR level is greater than 90. CKD-1 describes a person with normal eGFR (> 90) who has a finding of persistent protein in the urine (proteinuria). This condition can be a precursor for the other progressive levels of CKD. CKD-2, or mild CKD, is defined by eGFR of 60-89. CKD-3, or moderate CKD, is defined by eGFR of 30-59. CKD-4, or severe CKD, is defined by eGFR of 15-29. CKD-5, or end-stage CKD/renal disease, is defined by an e-GFR of < 15. Most patients in this range will require dialysis. Why is addressing CKD important? Obviously, the progression to severe CKD is one that we would like to identify early and prevent. With appropriate precautions, progression from mild to end-stage CKD can be avoided altogether. Therefore, when we identify the early stages, we should respond by initiating CKD precautions and rechecking the eGFR at appropriate intervals. In order to signal your insurance to pay for appropriate labs, we must have an appropriate diagnosis code. The appropriate diagnosis code for CKD enables payment by your insurance for the labs needed to monitor CKD. What you can do: CKD PRECAUTIONS 1) Control blood pressure. High blood pressure is a leading cause of kidney disease. Normal blood pressure should be < 130 / < 80. If your blood pressure is not controlled, you need to contact your doctor to pursue treatment for better control. 2) Maintain adequate hydration. Dehydration stresses the kidneys. You should drink a minimum of 64 oz of WATER daily. If you have congestive heart failure, or have been advised to not drink too many fluids, check with your doctor to see what level of fluid intake may be most appropriate for your situation. 3) Avoid the use of non-steroidal anti-inflammatory drugs (NSAIDs). Over the counter (Motrin/ibuprofen , Aleve/naproxen) and prescription NSAIDs (Celebrex, meloxicam, Voltaren) can damage the kidneys if taken regularly. Occasional use is not typically associated with problems, but as an alternative, Tylenol (acetaminophen) does not cause kidney damage when taken in recommended doses, and may be a good alternative for patients with CKD. Ask your doctor when and if NSAIDs are needed so that you can avoid causing further damage to the kidney function. 4) Get regular check ups and lab work. Once yearly may be adequate monitoring for CKD-2 and CKD-3, while a change in the level of CKD or progression to CKD-4 or higher may warrant more frequent evaluation. With monitoring, your doctor can help you avoid progression of your kidney disease. Worsening CKD may warrant further evaluation with urine studies, kidney imaging by ultrasound, or even referral to a kidney specialist (receptionist nurse). 10/01/2024 Obstructive sleep apnea (adult) (pediatric) (ICD-10 - G47.33) 10/01/2024 Cirrhosis of liver without ascites, unspecified hepatic cirrhosis type (ICD-10 - K74.60) 10/01/2024 Portal hypertension (ICD-10 - K76.6) 10/01/2024 Mixed hyperlipidemia (ICD-10 - E78.2) 10/01/2024 Varicose veins of left lower extremity with pain (ICD-10 - I83.812) 10/01/2024 Gastro-esophageal reflux disease without esophagitis (ICD-10 - K21.9) 10/01/2024 Essential (primary) hypertension (ICD-10 - I10) 10/01/2024 BMI 25.0-25.9,adult (ICD-10 - Z68.25) 10/01/2024 Acute anemia (ICD-10 - D64.9) 10/01/2024 Sleep difficulties (ICD-10 - G47.9) 10/01/2024 Increased ammonia level (ICD-10 - R79.89) 10/01/2024 Hepatic encephalopathy (ICD-10 - K76.82) 10/01/2024 Encounter for screening for depression (ICD-10 - Z13.31) 10/01/2024 Liver fibrosis (ICD-10 - K74.00) 10/01/2024 Other Plan Of Treatment Treatment Notes Assessment Notes Medicare annual wellness vis it, subsequent We reviewed the Medicare prevention and screening guidelines with the patient. Any services/screenings for which the patient was eligible were discussed and offered to the patient today (see orders for details). The patient was counseled regarding healthy lifestyle choices as well as avoiding accidents and injuries in their home. The patient's questions asked and answered. We formulated plans specific to their overall risk factors and discussed plan of care for existing chronic conditions. Labs ordered and/or reviewed. Follow up 12 months for AWV. Chronic kidney disease, stage 2 (mild) Your lab values indicate some degree of kidney impairment, which is referred to as chronic kidney disease (CKD). The diagnosis and level of kidney dysfunction is determined by lab values. Milder levels of CKD are VERY COMMON in persons over 60...in fact, the vast majority of persons over 60 have at least mild impairment that is age-related, and unlikely to progress to more severe disease, if properly managed. One measure of kidney function is a creatinine level. Creatinine is a muscle breakdown product that can vary widely according to age, gender, and muscle mass. For this reason, measuring creatinine alone is not a reliable evaluation of kidney function across diverse populations. The easiest and most reliable measure for evaluating kidney function is called the glomerular filtration rate (GFR) which can be estimated (eGFR) by a persons' lab creatinine level, age, gender and (according to some authorities) race. Most labs (including ours) will automatically generate an eGFR on every patient who has a creatinine level measured, and will provide both eGFRAA () and eGFRNAA (non-), since race demographics are not always readily available to the clinical lab equipment. A normal eGFR level is greater than 90. CKD-1 describes a person with normal eGFR (> 90) who has a finding of persistent protein in the urine (proteinuria). This condition can be a precursor for the other progressive levels of CKD. CKD-2, or mild CKD, is defined by eGFR of 60-89. CKD-3, or moderate CKD, is defined by eGFR of 30-59. CKD-4, or severe CKD, is defined by eGFR of 15-29. CKD-5, or end-stage CKD/renal disease, is defined by an e-GFR of < 15. Most patients in this range will require dialysis. Why is addressing CKD important? Obviously, the progression to severe CKD is one that we would like to identify early and prevent. With appropriate precautions, progression from mild to end-stage CKD can be avoided altogether. Therefore, when we identify the early stages, we should respond by initiating CKD precautions and rechecking the eGFR at appropriate intervals. In order to signal your insurance to pay for appropriate labs, we must have an appropriate diagnosis code. The appropriate diagnosis code for CKD enables payment by your insurance for the labs needed to monitor CKD. What you can do: CKD PRECAUTIONS 1) Control blood pressure. High blood pressure is a leading cause of kidney disease. Normal blood pressure should be < 130 / < 80. If your blood pressure is not controlled, you need to contact your doctor to pursue treatment for better control. 2) Maintain adequate hydration. Dehydration stresses the kidneys. You should drink a minimum of 64 oz of WATER daily. If you have congestive heart failure, or have been advised to not drink too many fluids, check with your doctor to see what level of fluid intake may be most appropriate for your situation. 3) Avoid the use of non-steroidal anti-inflammatory drugs (NSAIDs). Over the counter (Motrin/ibuprofen, Aleve/naproxen) and prescription NSAIDs (Celebrex, meloxicam, Voltaren) can damage the kidneys if taken regularly. Occasional use is not typically associated with problems, but as an alternative, Tylenol (acetaminophen) does not cause kidney damage when taken in recommended doses, and may be a good alternative for patients with CKD. Ask your doctor when and if NSAIDs are needed so that you can avoid causing further damage to the kidney function. 4) Get regular check ups and lab work. Once yearly may be adequate monitoring for CKD-2 and CKD-3, while a change in the level of CKD or progression to CKD-4 or higher may warrant more frequent evaluation. With monitoring, your doctor can help you avoid progression of your kidney disease. Worsening CKD may warrant further evaluation with urine studies, kidney imaging by ultrasound, or even referral to a kidney specialist (receptionist nurse). Next Appt Details Follow Up: 1 Year Rylan ARELLANO n: Provider Name:RAJI KING, 11/14/2024 10:50:00 AM, [address], [place], [id number], Provider Name:MCKENZIE VICK SON, 10/05/2025 08:00:00 AM, [address], [place], [address], Progress Notes * Ifrah KHAN ADOB: [birth year] (68 yo F)Acc No.[id number]:10/01/2024 Progress Note Patient: Ifrah GOODMAN Provider: Osiris JENSEN MD :1955 A ge:68 Y S ex:Female Date:10/01/2024 Address:[address] [place], [place] [id number] Subjective: * Chief Complaints: * 1 . Last awv 09/19/23. 2. Annual Medicare Wellness visit. * HPI: Shaquille pennington Annual Visit: Here for annual Medicare wellness visit. Type of Visit - S ubsequent Annual Medicare Wellness visit Language or Communication barrier addressed - Y es Health Risk Assessment - In the past month, how often did you experience pain? R dina - In the past month, how much has pain affected your ability to work? N ot at all - In the past month, how much has pain affected your ability to walk? A little - In the past month, how much has pain affected your relationship with other people? N ot at all - How would you describe the ease with which you can prepare your own food? E asy - How would you describe the ease with which you can bathe or clean yourself? E asy - How would you describe the ease with which you can dress yourself? E asy - How hard is it to use the toilet by yourself? N ot hard at all - How would you describe the ease with which you can do your own shopping? E asy - How would you describe the ease with which you can get around your house? E asy - How would you describe your ability to pay your bills? G ood - How would you describe your ability to plan your daily and monthly budgets? G ood - How would you describe your ability to do routine housework? G ood Immunization Status addressed - Y es Depression Screening - P HQ2 done Vision Screening - N ot done Hearing Screening D o you have trouble hearing? Y es, no gross abnormalities Fall Risk and Home Safety - N egative, no falls in the past year, no difficulty walking, or getting out of bed or chair G et Up and Go Evaluation u nder 20 seconds M edication evaluation and reconciliation performed Y es V ision screening recommended Y es L iterature offered to the patient N o Psychosocial Risks - N o overt psychosocial risks shown, observed, or mentioned Substance abuse (KARIS) risk assessed verbally, none found Behavioral Risks - P atient seems very well adjusted and no behavioral issues noted Activities of Daily Living - N ot impaired Cognitive Screening - N o overt cognitive deficiency is apparent by direct observation P atient Care Team: INCLUDE DME and Home Health providers, (if none so state). * ROS: G eneral/Multi-system: CONSTITUTIONAL d enies symptoms, F ever. R ESPIRATORY D enies symptoms, s hortness of breath , acute cough. C ARDIOVASCULAR d enies symptoms, c hest pain. S KIN d enies symptoms, r camryn. P SYCHIATRIC d enies symptoms, d epression , anxiety , difficulty sleeping. * Medical History: H yperlipidemia: Hypercholesterolemia; 10 year risk score was 6.4%, 07/27/20, Sleep Apnea: dx'd in 2017; (+) sleep study; has a CPAP, but does not use it, Gastroesophageal Reflux Disease: since 1993, Urinary Incontinence, LIVING WILL: Patient denies that she has a living will, COLONOSCOPY: was last done 08/05/24 (Inpatient at [facility]) Internal Hemorrhoids, Colum of Rectal Varix-not bleeding. 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 Due again in 5 years, MAMMOGRAM: was last done 10/01/2023 normal. appt today, 10/01/24, EYE EXAM: 03/2023, INFLUENZA VACCINE: 2022, PNEUMOCOCCAL VACCINE: 07/27/20, Prevnar 13. 08/16/21, Pneumovax 23, TETANUS VACCINE: was last done , SHINGLES VACCINE: was last done 2015. she has had both shingrix, COVID-19: 2 doses of Moderna, FIBROSCAN: was done 08/28/24; moderate steatosis with cirrhosis.. * Surgical History: A ppendectomy: at age 13; uncomplicated , Fracture Repair: right wrist with plates and screws , Benign breast tumor right breast age 14 . * Hospitalization/Major Diagno stic Procedure: U AMS 07/2024. * Family History: F ather: , at age 83; Cause of was aspiration pneumonia; Hypertension. M other: Cerebrovascular Accident. * Social History: T obacco Use: T obacco Control (Standard) T obacco use: N onsmoker M igrated Social History: M igrated Social History: Employment: Retired. Marital Status: . Children: 5 children and 2 are adopted. D epression Screening: P HQ-2 L ittle interest or pleasure in doing things??Not at all F eeling down, depressed, or hopeless? N ot at all 10/01/24 T otal Score 0 D rugs/Alcohol: D o you drink alcohol?: No. * Medications: T aking Carvedilol 3.125 MG Tablet 1 tablet with food Orally Twice a day , Taking Lactulose 10 GM/15ML Solution 30 ML Orally three times a day , Taking Pantoprazole Sodium 40 MG Tablet Delayed Release 1 tablet 1/2 to 1 hour before morning meal Orally Once a day , Taking FeroSul , Taking Rosuvastatin Calcium 5 MG Tablet Take 1 tablet by mouth once daily , Taking Losartan Potassium 50 MG Tablet 1 tablet Orally Once a day , Taking Sertraline HCl 50 MG Tablet 1 tablet Orally Once a day , Not-Taking Magnesium 250 MG Tablet 2 tablet with a meal Orally twice a day , Not-Taking Omeprazole 20 MG Capsule Delayed Release TAKE 1 CAPSULE BY MOUTH IN THE MORNING 30 MINUTES BEFORE MORNING MEAL , Not-Taking Naproxen 500 MG Tablet 1 tablet with food or milk as needed Orally every 12 hrs , Not-Taking traZODone HCl 50 MG Tablet 1 tablet at bedtime as needed Oral Once a day , Not-Taking Meloxicam 15 MG Tablet Take 1 tablet by mouth once daily , Not-Taking PriLOSEC OTC 20 MG Tablet Delayed Release 1 tablet 30 minutes before morning meal Orally Once a day , Not-Taking Vitamin , Medication List reviewed and reconciled with the patient * Allergies: N .K.D.A. Objective: * Vitals: W t:179lbs, Wt-k.19 kg, Ht: 70 in, BP:138/64mm Hg, HR:52/min, Oxygen sat %:95%, BMI:25.68Index, Body Surface Area: 2. * P ast Orders: L ab:Comprehensive Metabolic Panel (CMP) (Order Date - 10/01/2023) (Collection Date & Time - 10/01/2023 09:08 AM) Value Reference Range Glucose 101 70-110 - mg/dL BUN 15 7-18 - mg/dL Creatinine 0.8 0.5-1.0 - mg/dL eGFR 86 66-127 - mL/min/1. 73m2 eGFR Non- 71 55-105 - mL/mi n/1.73m2 BUN/Creat 19 - Ratio Sodium 140 137-149 - mmol/L Potassium 4.3 3.6-5.2 - mmol/L Chloride 102 98-109 - mmol/L CO2 30 26-34 - mmol/L Calcium 9.8 8.4-10.5 - mg/dL Anion Gap 8 - mmol/L Total Protein 7.6 6.3-8.5 - g/dL Albumin 4.5 3.3-4.7 - g/dL Globulin 3.1 2.4-3.5 - g/dL Albumin/Globulin 1.5 1.1-1.5 - Ratio Alk Phos 69 38-126 - U/L AST (SGOT) 47 H 6-40 - U/L ALTV 28 4-35 - U/L Bilirubin, Total 1.0 0.2-1.3 - mg/dL Notes: labs are from 09/01/22 visit for 09/02/23 Clinical Info: labs are from 09/01/22 visit for 09/02/23 Lab:Lipid Panel * Collection Date 10/01/2023 08/29/2022 08/15/2021 Collection Time 09:08 AM 10:53 AM 08:18 AM Order Date 10/01/2023 08/29/2022 08/15/2021 Result: Normal Triglyceride 117 (Ref Range: 35-135 mg/dL) 160 H (Ref Range: 35-135 mg/dL) 150 H (Ref Range: 35-135 mg/dL) Cholesterol 188 (Ref Range: 50-200 mg/dL) 239 H (Ref Range: 50-200 mg/dL) 229 H (Ref Range: 50-200 mg/dL) HDL, Direct 48 (Ref Range: 35-100 mg/dL) 42 (Ref Range: 35-100 mg/dL) 40 (Ref Range: 35-100 mg/dL) LDL-Calculated 117 (Ref Range: 66-130 mg/dL) 165 H (Ref Range: 66-130 mg/dL) 159 H (Ref Range: 66-130 mg/dL) CHOL/HDL Risk Ratio 4 (Ref Range: 3-5 Ratio) 6 H (Ref Range: 3-5 Ratio) 6 H (Ref Range: 3-5 Ratio) LDL/HDL Risk Ratio 2 (Ref Range: 1-3 Ratio) 4 H (Ref Range: 1-3 Ratio) 4 H (Ref Range: 1-3 Ratio) VLDL 23.4 (Ref Range: 12.0-48.0 mg/dL) 32.0 (Ref Range: 12.0-48.0 mg/dL) 30.0 (Ref Range: 12.0-48.0 mg/dL) * Examination: G eneral Examination: GENERAL APPEARANCE: i n no acute distress, well developed, well nourished. HEAD: n ormocephalic, atraumatic. EARS: H earing is adequate for normal conversation. NOSE: n hector patent , septum intact. NECK / THYROID: n moisés supple, full range of motion. SKIN: n o rashes , warm and dry. LUNGS: N o conversational dyspnea, normal respiratory effort. NEUROLOGIC: a lert and oriented , cooperative with exam , cranial nerves 2-12 grossly intact , gait normal. PSYCH: a lert, oriented , cognitive function intact , good eye contact , judgement and insight good , mood/affect full range. Assessment: * Assessment: 1. M aditi annual wellness visit, subsequent - Z00.00 (Primary) 2 . C hronic kidney disease, stage 2 (mild) - N18.2 3 . O bstructive sleep apnea (adult) (pediatric) - G47.33 4 . C irrhosis of liver without ascites, unspecified hepatic cirrhosis type - K74.60 5 . P ortal hypertension - K76.6 6 .?Mixed hyperlipidemia - E78.2 7 . V aricose veins of left lower extremity with pain - I83.812 8 . G gloria-esophageal reflux disease without esophagitis - K21.9 9 . E ssential (primary) hypertension - I10 1 0. B AR 25.0-25.9,adult - Z68.25 1 1. A cute anemia - D64.9 1 2. S leep difficulties - G47.9 1 3. I ncreased ammonia level - R79.89 1 4. H epatic encephalopathy - K76.82 1 5. E ncounter for screening for depression - Z13.31 1 6. L iver fibrosis - K74.00 Plan: * Treatment: 2. C hronic kidney disease, stage 2 (mild) Notes: Your lab values indicate some degree of kidney impairment, which is referred to as chronic kidney disease (CKD). The diagnosis and level of kidney dysfunction is determined by lab values. Milder levels of CKD are VERY COMMON in persons over 60...in fact, the vast majority of persons over 60 have at least mild impairment that is age-related, and unlikely to progress to more severe disease, if properly managed. One measure of kidney function is a creatinine level. Creatinine is a muscle breakdown product that can vary widely according to age, gender, and muscle mass. For this reason, measuring creatinine alone is not a reliable evaluation of kidney function across diverse populations. The easiest and most reliable measure for evaluating kidney function is called the glomerular filtration rate (GFR) which can be estimated (eGFR) by a persons' lab creatinine level, age, gender and (according to some authorities) race. Most labs (including ours) will automatically generate an eGFR on every patient who has a creatinine level measured, and will provide both eGFRAA () and eGFRNAA (non-), since race demographics are not always readily available to the clinical lab equipment. A normal eGFR level is greater than 90. CKD-1 describes a person with normal eGFR (> 90) who has a finding of persistent protein in the urine (proteinuria). This condition can be a precursor for the other progressive levels of CKD. CKD-2, or mild CKD, is defined by eGFR of 60-89. CKD-3, or moderate CKD, is defined by eGFR of 30-59. CKD-4, or severe CKD, is defined by eGFR of 15-29. CKD-5, or end-stage CKD/renal disease, is defined by an e-GFR of < 15. Most patients in this range will require dialysis. Why is addressing CKD important? Obviously, the progression to severe CKD is one that we would like to identify early and prevent. With appropriate precautions, progression from mild to end-stage CKD can be avoided altogether. Therefore, when we identify the early stages, we should respond by initiating CKD precautions and rechecking the eGFR at appropriate intervals. In order to signal your insurance to pay for appropriate labs, we must have an appropriate diagnosis code. The appropriate diagnosis code for CKD enables payment by your insurance for the labs needed to monitor CKD. What you can do: CKD PRECAUTIONS 1) Control blood pressure. High blood pressure is a leading cause of kidney disease. Normal blood pressure should be < 130 / < 80. If your blood pressure is not controlled, you need to contact your doctor to pursue treatment for better control. 2) Maintain adequate hydration. Dehydration stresses the kidneys. You should drink a minimum of 64 oz of WATER daily. If you have congestive heart failure, or have been advised to not drink too many fluids, check with your doctor to see what level of fluid intake may be most appropriate for your situation. 3) Avoid the use of non-steroidal anti-inflammatory drugs (NSAIDs). Over the counter (Motrin/ibuprofen, Aleve/naproxen) and prescription NSAIDs (Celebrex, meloxicam, Voltaren) can damage the kidneys if taken regularly. Occasional use is not typically associated with problems, but as an alternative, Tylenol (acetaminophen) does not cause kidney damage when taken in recommended doses, and may be a good alternative for patients with CKD. Ask your doctor when and if NSAIDs are needed so that you can avoid causing further damage to the kidney function. 4) Get regular check ups and lab work. Once yearly may be adequate monitoring for CKD-2 and CKD-3, while a change in the level of CKD or progression to CKD-4 or higher may warrant more frequent evaluation. With monitoring, your doctor can help you avoid progression of your kidney disease. Worsening CKD may warrant further evaluation with urine studies, kidney imaging by ultrasound, or even referral to a kidney specialist (receptionist nurse). 3. M ixed hyperlipidemia L AB: Lipid Panel (Collection Date & Time - 10/01/2024 09:43 AM) 4. E ssential (primary) hypertension L AB: Comprehensive Metabolic Panel (CMP) (Collection Date & Time - 10/01/2024 09:43 AM) 5. A cute anemia L AB: Complete Blood Count w/ Auto Diff (CBC) (Collection Date & Time - 10/01/2024 09:43 AM) 6. L iver fibrosis L AB: Prothrombin Time INR (fingerstick) (Collection Date & Time - 10/01/2024 09:43 AM) L AB: AMMONIA, PLASMA (Collection Date & Time - 10/01/2024 09:44 AM) * Labs: * L ab: Lipid Panel (Collection Date & Time - 10/01/2024 09:43 AM) N ormal Value Reference Range T riglyceride 127 35-135 - mg/dL * C holesterol 181 50-200 - mg/dL * H DL, Direct 50 35-100 - mg/dL * L DL-Calculated 106 66-130 - mg/dL * C HOL/HDL Risk Ratio 4 3-5 - Ratio * L DL/HDL Risk Ratio 2 1-3 - Ratio * V LDL 25.4 12.0-48.0 - mg/dL ?Lab: Comprehensive Metabolic Panel (CMP) (Collection Date & Time - 10/01/2024 09:43 AM)* Value Reference Range G lucose 108 70-110 - mg/dL * B UN 11 7-18 - mg/dL * C reatinine 0.7 0.5-1.0 - mg/dL * e GFR 101 66-127 - mL/min/1.7 3m2 * e GFR Non- 83 55-105 - mL/min /1.73m2 * B UN/Creat 16 - Ratio * S odium 139 137-149 - mmol/L * P otassium 4.2 3.6-5.2 - mmol/L * C hloride 105 98-109 - mmol/L * C O2 26 26-34 - mmol/L * C alcium 9.5 8.4-10.5 - mg/dL * A nion Gap 8 - mmol/L * T otal Protein 7.6 6.3-8.5 - g/dL * A lbumin 5.0 H 3.3-4.7 - g/dL * G lobulin 2.6 2.4-3.5 - g/dL * A lbumin/Globulin 1.9 H 1.1-1.5 - Ratio * A lk Phos 74 38-126 - U/L * A ST (SGOT) 44 H 6-40 - U/L * A LTV 42 H 4-35 - U/L * B ilirubin, Total 0.4 0.2-1.3 - mg/dL ?Lab: Complete Blood Count w/ Auto Diff (CBC) (Collection Date & Time - 10/01/2024 09:43 AM)* Value Reference Range W BC 4.4 4.0-10.8 - 10^3/uL * R BC 5.08 3.80-5.40 - 10^6/uL * H emoglobin 13.7 12.0-16.0 - g/dL * H ematocrit 43.1 36.0-47.0 - % * M CV 85 83-101 - fL * M CH 27 27-33 - pg * M CHC 32 32-36 - g/dL * R DW-CV 16.3 H 6.5-16.0 - % * P latelets 132 L 150-450 - 10^3/uL * M PV 10.0 7.4-10.4 - fL * N eutrophil % 50.2 40.0-80.0 - % * L ymphocyte % 37.8 20.0-45.0 - % * M ixed% 12.0 H 0.1-10.0 - % * N eutrophil # 2.2 1.3-7.4 - 10^3/uL * L ymphocyte # 1.7 0.9-5.3 - 10^3/uL * M ixed# 0.5 0.1-1.1 - 10^3/uL ?Lab: AMMONIA, PLASMA (Collection Date & Time - 10/01/2024 09:44 AM)* Value Reference Range A MMONIA (P) 25 < OR = 72 - umol/L ?Lab: Prothrombin Time INR (fingerstick) (Collection Date & Time - 10/01/2024 09:43 AM)?Normal* Value Reference Range I NR 1.1 0.8-1.2 - INR * C oumadin Dosage n/a - * Procedure Codes: G 0439 MEDICARE ANNUAL WELLNESS SUBSEQUENT, 1101F FALL RISK ASSESSMENT NO FALL PAST YR, 3008F BODY MASS INDEX DOCD, 1160F REVIEW MED BY PRESCRIBING PROVIDER, 1000F TOBACCO USE, SMOKING, ASSESS, 1220F PATIENT SCREENED FOR DEPRESSION, 3075F MOST RECENT SYSTOLIC BP 130 - 139 MM HG, 3078F DIAST BP < 80 MM HG, 3017F COLORECTAL CA SCREEN DOC REV, 3014F SCREEN MAMMO DOCUMENTS REVIEWED, 1036F TOBACCO NON-USER, G8427 DOC MEDS VERIFIED W/PT OR RE, G8510 NEG SCR D PT NOT ELIG F/U/PLN DOC, G2211 Complex E/[place], [address] PROTHROMBIN TIME, 73858 CBC COMPLETE W/AUTO DIFF WBC, 07923 VENIPUNCT, ROUTINE*, E9995 LAB SEND OUT - NO CHARGE, 35372 LIPID PANEL, 00960 COMPREHEN METABOLIC PANEL * Preventive Medicine: FEMALE PREVENTIVE WELLNESS PLAN: B lood Pressure: The Recommended Frequency is: C ompleted today. V ision: The Recommended Frequency is: A nnual Glaucoma screening, with Eye Doctor A bdominal Aortic Aneurysm: The Recommended Frequency is: O NCE between age 65 and 75 for women, with close family history of AAA. B reast Cancer Screening (Mammogram): The Recommended Frequency is: E very two years, ages 50-74 AT MINIMUM, preferably annually C ervical Cancer Screening (Pap Smear): The Recommended Frequency is: E very five years, ages 30-65 with HPV testing Optional after age 65 O steoporosis Screening (Bone Density Measurement): The Recommended Frequency is: R outinely, for women ages 65+,Routinely, for women ages 60-64 with risk factors C holesterol Testing: The Recommended Frequency is: R egularly beginning at age 20 with risk factors D iabetes Screening: The Recommended Frequency is: W ith a sustained BP >/= 135/80 mm Hg annual glucose screening C olorectal Cancer Screening: The Recommended Frequency is: A nnually, Fecal Occult Blood Stool (FOBS),Every 10 years, Colonoscopy (Either/Or) D epression Screening: The Recommended Frequency is: A s necessary for those with risk factors A lcohol Misuse Screening: The Recommended Frequency is: A s necessary for those with risk factors P neumococcal (Pneumonia) Vaccine: The Recommended Frequency is: p neumonia vaccine at age 50 for eligibles I nfluenza (Flu) Vaccine: The Recommended Frequency is: A nnually Usually in February. M ajor Risk Factors Your Major Risk Factors Include: R isk factors than can be modified include Inactivity, Poor eating choices, too much food and drink, clutter in the home that can cause falls, smoking and other tobacco, sleeping aids, excess salt and junk food,For best health and happiness YOU SHOULDExercise 20 minutes at least three times a weekAvoid all tobacco.If you have diabetes, keep it under control.Eat with awareness, pay attention to what and when.Take prescribed blood pressure, diabetic and cholesterol meds.Do not expect a pill to solve all of your problems.Attend to MENTAL HEALTH, avoid toxic conversations and readings. * Follow Up: 1 Year AWV * Billing Information: * Visit Code: 57012 Office Visit, Est Pt., Level 3. * Procedure Codes: G0439 MEDICARE ANNUAL WELLNESS SUBSEQUENT. 1101F FALL RISK ASSESSMENT NO FALL PAST YR. 3008F BODY MASS INDEX DOCD. 1160F REVIEW MED BY PRESCRIBING PROVIDER. 1000F TOBACCO USE, SMOKING, ASSESS. 1220F PATIENT SCREENED FOR DEPRESSION. 3075F MOST RECENT SYSTOLIC BP 130 - 139 MM HG. 3078F DIAST BP < 80 MM HG. 3017F COLORECTAL CA SCREEN DOC REV. 3014F SCREEN MAMMO DOCUMENTS REVIEWED. 1036F TOBACCO NON-USER. G8427 DOC MEDS VERIFIED W/PT OR RE. G8510 NEG SCR D PT NOT ELIG F/U/PLN DOC. G2211 Complex E/[place] On. 34655 PROTHROMBIN TIME. 12853 CBC COMPLETE W/AUTO DIFF WBC. 07652 VENIPUNCT, ROUTINE*. E9995 LAB SEND OUT - NO CHARGE. 01700 LIPID PANEL. 49923 COMPREHEN METABOLIC PANEL. * Electronic signature of ISAIAS JENSEN MD on 11/13/2024 at 07:03 PM CDT Sign off status: Pending * Provider: Osiris JENSEN MD Date: 0 10/01/2024 Generated for Anabella javier/Raj/eTsharmilasmitting on: 0 11/13/2024 07:03 PM CDT History and Physical Notes * HPI (History of Present Illness) Category Sub-Category Detail Notes Category Not es Medicare Annual Visit Type of Visit -: Subse quent Annual Medicare Wellness visit Language or Communication barrier addressed -: Y es Health Risk Assessment - In the past sun, how often did you experience pain?: Rarely - In the past month, how muc h has pain affected your ability to work?: Not at all - In the past month, how much has pain a ffected your ability to walk?: A little - In the past month, how muc h has pain affected your relationship with other people?: Not at all - How would you describe the ease with which you can prepare your own food?: Easy - How would you describe the ease with which you can bathe or clean yourself?: Easy - How would you describe the ease with w hich you can dress yourself?: Easy - How hard is it to use the toilet by yo urself?: Not hard at all - How would you describe the ease with which you can do your own shopping?: Easy - How would you describe the ease with which you can get around your house?: Easy - How would you describe your ability to pay your bills?: Good - How would you describe you r ability to plan your daily and monthly budgets?: Good - How would you describe your ability to do routine housework?: Good Immunization Status addressed -: Yes Vision Screening -: Not done Depression Screening -: PHQ2 done Hearing Screening Do you have trouble hearing?: Yes, no gross abnormalities Fall Risk and Home Safety -: Negative, n o falls in the past year, no difficulty walking, or getting out of bed or chair Get Up and Go Evaluation: under 20 secon ds Medication evaluation and reconciliation performed: Yes Vision screening recommended: Yes Literature offered to the patient: No Psychosocial Risks -: No overt psychoso cial risks shown, observed, or mentioned Substance abuse (KARIS) risk assessed verbally, none found Behavioral Risks -: Patient seems farheen y well adjusted and no behavioral issues noted Activities of Daily Living -: Not impaired Cognitive Screening -: No overt cognitiv e deficiency is apparent by direct observation Examination Category Sub-Category Detail Notes Category Not es General Examination GENERAL APPEARANCE: in no ac [place] distress, well developed, well nourished HEAD: normocephalic, atrau matic EARS: Hearing is adequate for normal conversation NOSE: nares patent , septu m intact NECK / THYROID: neck supple, full ra nge of motion LUNGS: No conversational dy spnea, normal respiratory effort NEUROLOGIC: alert and oriented , cooperative with exam , cranial nerves 2-12 grossly intact , gait normal SKIN: no rashes , warm and dry PSYCH: alert, oriented , co gnitive function intact , good eye contact , judgement and insight good , mood/affect full range
[2024-11-13 18:55] VITALS: BP 135/74; PULSE 68; TEMP 36.7; O2SAT 97; BMI 24.9
--- OUTSIDE RECORDS SUMMARY | 2024-11-13 19:03 | XMS_ITS | Clinical Summary ---
Author Organization [facility] tone Address [address] 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 Gender Identity Not on file Sexual Orientation Not on file Plan of Treatment Health Maintenance Due Date Last Done Comments DTAP/TDAP/TD VACCINES (1 - Tdap) 1973 BREAST CANCER SCREENING 1994 COLORECTAL SCREENING 11/25/1999 Colorectal Cancer Screening 11/25/1999 FIT-DNA Q 3 years 11/25/1999 FIT/FOBT Q 1 year 11/25/1999 Flex Sig/CT Colonography Q 5 years 11/25/1999 PNEUMOCOCCAL VACCINE 50+ YEARS (1 of 1 - PCV) 11/25/19 05 ZOSTER VACCINE (1 of 2) 2004 OSTEOPOROSIS SCREENING 11/25/2019 INFLUENZA VACCINE (#1) 2023 RSV VACCINE (60+ or ) (1 - 1-dose 75+ series) 2029 Insurance [employer]
--- OUTSIDE RECORDS SUMMARY | 2024-11-13 19:03 | XMS_ITS | Clinical Summary ---
Author Organization [facility] Address [address] Attn: [place] [address] Care Team Providers Care Coil Cleaner Name Role Phone Unavailable Primary Care Provider Unavailabl e Encounters Date Type Department Care Team Description 11/11/2024 External Device Data [facility] ABSTRACTION Provider, Abstract 08/19/2024 External Device Data [facility] ABSTRACTION Provider, Abstract 08/13/2024 Telephone [facility] Hepatology [address] [place] [address] Ruiz Trevino MD Question from Last 3 Months Social History Tobacco Use Types Packs/Day Years Used Date Smoking Tobacco: Never Assessed Comments Unknown Sex and Gender Information Value Date Recorded Sex Assigned at Not on file 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
--- OUTSIDE RECORDS SUMMARY | 2024-11-13 19:03 | XMS_ITS | Encounter Summary ---
Author Organization [email or web address] Address 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
--- OUTSIDE RECORDS SUMMARY | 2024-11-13 19:03 | XMS_ITS | Patient Health Record ---
Author Organization [facility] Main Address [address] [place] [address], [place] [address] Care Team Providers Care Box Sealing Machine Catcher Name Role Phone MCKENZIE JENSEN Primary Care Provider [phone] Allergies No Known Allergies Results Component Value Reference Range Notes Lipid Panel Reviewed date:10/02/2024 11:45:34 AM Interpretation:Normal Performing Lab: Notes/Report: Draw Location: [facility] Fasting: Yes Testing performed at: [address] [place] [address] CLIA ID [id number] Prothrombin Time INR (finger stick) Reviewed date:10/02/2024 11:45:34 AM Interpretation:Normal Performing Lab: Notes/Report: Draw Location: [facility] Fasting: Yes Testing performed at: [address] [place] [address] CLIA ID [id number] Complete Blood Count w/ Auto Diff (CBC) Reviewed date:10/02/2024 11:45:34 AM Interpretation: Performing Lab: Notes/Report: Draw Location: [facility] Fasting: Yes Testing performed at: [address] [place] [address] CLIA ID [id number] Comprehensive Metabolic Pane l (CMP) Reviewed date:10/02/2024 11:45:34 AM Interpretation: Performing Lab: Notes/Report: Draw Location: [facility] Fasting: Yes Testing performed at: [address] [place] [address] CLIA ID [id number] AMMONIA, PLASMA Reviewed date:10/06/2024 09:52:21 AM Interpretation: Performing Lab: Notes/Report: Draw Location: [facility] Fasting: Yes [facility] Testing performed at: [employer] [employer], [address] [facility], [place], [address], Pacu Rn: Roscoe Lin MD [facility] Collection Date/Time: [id number] [facility] Results Received Date/Time: [id number] [facility] Reported Date/Time: [id number] AMMONIA (P) 25 < OR = 72 umol/L Mammogram: Bilateral Screeni ng Mammogram Reviewed date:10/02/2024 11:41:44 AM Interpretation: Performing Lab: Notes/Report: MRI Lumbar Spine w/o Cont--2147 Reviewed date:12/05/2023 02:02:18 PM Interpretation: Performing Lab: Notes/Report: See Below For Report MRI Lumbar Spine w/o Cont Read See Below For Report Reason For Referral Reason Referral to [facility] to further evaluate lumbar radiculopathy and right hip pain. 12/04 @ 3:43, faxed. KYLEE CHU 01/29, they are unable to schedule her due to no provider at this time. 02/05 @ 10:54, left patient message on identifiable VM about referral and asked how she would like us to proceed. KYLEE CHU Diagnosis 1 Lumbar radiculopathy (M54.16) Diagnosis 2 Right hip pain (M25. 551) Diagnosis 3 SI (sacroiliac) join t dysfunction (M53.3) Referral Organization [facility] Referring Provider First Name MCKENZIE Referring Provider Last Name MIKEY Referring Provider [facility] adrien Referred Provider [facility] Referred Provider Specialty Pain Medicin e Referral Priority Routine Reason FIBROSCAN at offi ce to evaluate liver fibrosis/possible cirrhosis 08/07/24 @ 3:38-Order and supporting docs e-faxed to Gastro. KYLEE CHU Diagnosis 1 Liver fibrosis (K74. 00) Referral Organization [facility] Referring Provider First Name MCKENZIE Referring Provider Last Name MIKEY [facility] Special[facility] Gastroentero logy Referral Priority Routine Reason Referral to Dr. Miky Klein, Sheetrock Applicator, to evaluate liver fibrosis, possible cirrhosis. She was recently in the hospital for a bleed. Please schedule AP, thanks! 08/14 @ 3:18, faxed. KYLEE CHU-failed RESENT 4:24 pm 08/15 @ 3:54, faxed. VLAD RN Diagnosis 1 Liver fibrosis (K74. 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 Will fax referral accordingly., JOSE ALFREDO MELLO 08/15/2024 03:52:46 PM >Daughter called and stated that she called the office in [place] and they told her they did not get the referral. They told her to have it faxed to [phone] which I had tried 2x via hand-fax and also once by e-fax and they did not transmit. Will attempt to send again. Clinical Notes JOSE ALFREDO MELLO 08/08/19 12:38:25 PM >First Choice: [facility] Second Choice: [facility] Referral Priority Routine Referral Appointment Date 09/03/2024 Medications Medication SIG (Take, Route, Frequency, Duration) Notes Start Date End Date Status FeroSul Active Lactulose 10 GM/15ML 30 ML Orally three times a day 09/04/2024 Active PriLOSEC OTC 20 MG 1 tablet 30 minutes before morning meal Orally Once a day for 90 days 06/26/2016 Not-Taking Pantoprazole Sodium 40 MG 1 tablet 1/2 t o 1 hour before morning meal Orally Once a day Active Vitamin Not -Taking traZODone HCl 50 MG 1 tablet at bedtime as needed Oral Once a day for 30 days 07/26/2023 Not-Taking Carvedilol 3.125 MG 1 tablet with food Orally Twice a day 09/04/2024 Active Meloxicam 15 MG Take 1 tablet by carley th once daily for 30 Not-Taking Sertraline HCl 50 MG Take 1 tablet by mo uth once daily for 30 Active Omeprazole 20 MG TAKE 1 CAPSULE BY [facility] IN THE MORNING 30 MINUTES BEFORE MORNING MEAL for 90 Not-Taking Naproxen 500 MG 1 tablet with food o r milk as needed Orally every 12 hrs 05/22/2024 Not-Taking Rosuvastatin Calcium 5 MG Take 1 tablet by mouth once daily for 90 Active Magnesium 250 MG 2 tablet with a meal Orally twice a day Not-Taking Losartan Potassium 50 MG 1 tablet Orally Once a day for 90 days 05/22/2024 Active Immunizations Vaccine Route Administration Date Status Comme nts Flulaval Quad, Medicare IM Intramuscular 02/23/2023 Admini stered Pneumovax 23 - MEDICARE IM Intramuscular 08/16/2021 Admini stered Prevnar 13 IM Intramuscular 07/27/2020 Administered Social History Tobacco Use: Social History Observation [...] Problem Status W/U Status Risk Notes Problem 075664680 Mixed hyperlipidemia (E78.2) Active confirmed Problem 80938826 Obstructive sleep apnea (adult) (pediatric) (G47.33) Active confirmed Problem 60164392 Essential (primary) hypertension (I10) Active confirmed Problem 855100094 Gastro-esophagea l reflux disease without esophagitis (K21.9) Active confirmed Problem 29505392 Portal hypertension (K76.6) Active confirmed Problem 939650595 Chronic kidney disease, stage 2 (mild) (N18.2) Active confirmed Problem 14801940532287716 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) Active confirmed Problem Mixed hyperlipidemia (537185300) 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) Active confirmed Problem 031518626 BMI 25.0-25.9,adult (Z68.25) Active confirmed Problem 32036150 Cirrhosis of liver without ascites, unspecified hepatic cirrhosis type (K74.60) Active confirmed Problem 882479370 Acute anemia (D64.9) Active confirmed Problem Accelerated essential hypertension (50068737) Accelerated essential hypertension (I10) Active confirmed Problem 511894323 Sleep difficulties (G47.9) Active confirmed Problem 48559384 Chronic viral hepatitis B without delta agent and without coma (B18.1) Active confirmed Problem Somatic dysfunction of sacroiliac joint (finding) (336784440962) SI (sacroiliac) joint dysfunction (M53.3) Active confirmed Problem Hepatic encephalopathy (36382055) Hepatic encephalopathy (K76.82) Active confirmed Problem 567927335 Increased ammonia level (R79.89) Active confirmed Problem Acute lymphadenitis (43351883) Acute lymphadenitis (683) 014 Problem resolved confirmed Inder-119 2830- Problem Chronic tension-type headache (157037100) Chronic tension-type headache, intractable (G44.221) 017 Problem resolved confirmed Inder-119 2830- Problem Tinnitus (16314416) Tinnitus, unspecified ear (H93.19) 016 Problem resolved confirmed Inder-119 2830- Problem Pain co-occurrent and due to varicose veins of bilateral legs (19420411419086160) Varicose veins of bilateral lower extremities with pain (I83.813) 016 Problem resolved confirmed Inder-119 2830- Problem Acute sinusitis (disorder) (53635453) Other acute sinusitis (J01.80) 017 Problem resolved confirmed Inder-119 2830- Problem Pain in wrist (18125920) Pain in unspecified wrist (M25.539) 017 Problem resolved confirmed Inder-119 2830- Problem Pain in right arm (757577857) Pain in right arm (M79.601) 017 Problem resolved confirmed Inder-119 2830- Problem Contusion of breast (929939016) Contusion of left breast, initial encounter (S20.02XA) 017 Problem resolved confirmed Inder-119 2830- Problem Adult health examination (475047582) Encounter for general adult medical examination without abnormal findings (Z00.00) 017 Problem resolved confirmed Inder-119 2830- Vital Signs Heart Rate 52 /min 10/01/2024 Oximetry 95 % 10/01/2024 Blood pressure diastolic 64 mm Hg 10/01/2024 Weight-kg 81.19 kg 10/01/2024 Height 70 in 10/01/2024 Blood pressure systolic 138 mm Hg 10/01/2024 Weight 179 lbs 10/01/2024 BMI 25.68 kg/m2 10/01/2024 Procedures Procedure Date Ordered Date Performed Result Body Sit e ASPIRATE/INJECT Shoulder Knee Hip 05/22/2024 N/ A Encounters Encounter Location Date Provider Diagnosis [facility] [place] [address] [address] 09/04/2024 MCKENZIE JENSEN Cirrhosis of liver without ascites, unspecified hepatic cirrhosis type K74.60 ; Increased ammonia level R79.89 ; Portal hypertension K76.6 ; Chronic viral hepatitis B without delta agent and without coma B18.1 ; Acute stress reaction F43.0 and Hepatic encephalopathy K76.82 [facility] [place] [address] [place] [address] 10/01/2024 MCKENZIE JENSEN Medicare annual wellness visit, [...] for depression Z13.31 and Liver fibrosis K74.00 [facility] [place] [address] [place] [address] 05/22/2024 MCKENZIE JENSEN Encounter for screen ing for depression Z13.31 ; SI (sacroiliac) joint dysfunction M53.3 and Dry cough R05.8 [facility] [place] [place] [address] 08/07/2024 MCKENZIE JENSEN Liver fibrosis K74.0 0 ; Idiopathic esophageal varices with bleeding I85.01 ; Acute anemia D64.9 ; Portal hypertension K76.6 ; Acute stress reaction F43.0 ; Sleep difficulties G47.9 and Encounter for screening for depression Z13.31 [facility] [place] [address] [place] [address] 10/01/2024 MCKENZIE JENSEN Encounter for screen ing mammogram for malignant neoplasm of breast Z12.31 [facility] [place] [address] [place] [address] 12/05/2023 MCKENZIE JENSEN Right hip pain M25.5 51 and Lumbar radiculopathy M54.16 [place] [address] [place] [address] 02/21/2024 MCKENZIE JENSEN [place] [address] [place] [address] 10/02/2024 MCKENZIE JENSEN Mixed hyperlipidemia E78.2 ; Essential (primary) hypertension I10 ; Acute anemia D64.9 and Increased ammonia level R79.89 Assessments Encounter Date Diagnosis (ICD Code) Assessment Notes Treatment Notes Treatment Clinical Notes Section Notes 12/05/2023 Right hip pain (ICD-10 - M25.551) 05/22/2024 Encounter for screening for depression (ICD-10 - Z13.31) 05/22/2024 SI (sacroiliac) joint dysfunction (ICD-10 - M53.3) we will give another steroid joint injection today. She has an appt with pain management next week. Encourage her to keep that appointment. Therapy is still the best option for terminal gauger pain relief 12/05/2023 Lumbar radiculopathy (ICD-10 - M54.16) 08/07/2024 Liver fibrosis (ICD-10 - K74.00) we are going to refer her to a metal fabricator helper. we will try to find one in [place], but otherwise, [facility]. we are also going to order a fibroscan to be done here locally at the GI office. we will also have her work on her diet because that is the cure for the liver disease. Recommend the mediterranean diet. Low carb to no carb. We will give her a month to work on this on her own, and if she is not having success, we will pursue other options. 08/07/2024 Idiopathic esophageal varices with bleeding (ICD-10 - I85.01) 09/04/2024 Cirrhosis of liver without ascites, unspecified hepatic cirrhosis type (ICD-10 - K74.60) She is seeing a metal fabricator helper in [place] at [facility]. We will have her continue to follow with them for ongoing care. We will continue to provide support for her if needed. 09/04/2024 Increased ammonia level (ICD-10 - R79.89) Currently on lactulose to prevent hepatic encephalopathy; pt to continue to monitor. 10/01/2024 Chronic kidney disease, stage 2 (mild) [...] or even referral to a kidney specialist (grinding machine operator automatic). 10/01/2024 Medicare annual wellness visit, subsequent (ICD-10 [...] Follow up 12 months for AWV. 10/01/2024 Encounter for screening mammogram for malignant neoplasm of breast (ICD-10 - Z12.31) 10/02/2024 Mixed hyperlipidemia (ICD-10 - E78.2) 10/02/2024 Essential (primary) hypertension (ICD-10 - I10) 09/04/2024 Portal hypertension (ICD-10 - K76.6) This is secondary to cirrhosis and the likely cause of her GI bleeding due to gastropathy and varicosities. Continue to follow. 10/01/2024 Obstructive sleep apnea (adult) (pediatric) (ICD-10 - G47.33) 08/07/2024 Acute anemia (ICD-10 - D64.9) 05/22/2024 Dry cough (ICD-10 - R05.8) having a dry cough. this could be due to the Lisinopril. We are going to stop this and start her on Losartan 50mg 08/07/2024 Portal hypertension (ICD-10 - K76.6) 09/04/2024 Chronic viral hepatitis B without delta agent and without coma (ICD-10 - B18.1) Pt was told that she has hepatitis b, though her serology was negative. We are awaiting furher clarification from [facility] on this matter. 10/01/2024 Cirrhosis of liver without ascites, unspecified hepatic cirrhosis type (ICD-10 - K74.60) 10/02/2024 Acute anemia (ICD-10 - D64.9) 10/02/2024 Increased ammonia level (ICD-10 - R79.89) 10/01/2024 Portal hypertension (ICD-10 - K76.6) 09/04/2024 Acute stress reaction (ICD-10 - F43.0) Will increase sertraline to 50 mg daily; monica in 4 weeks. Continue to monitor memory and mood. 08/07/2024 Acute stress reaction (ICD-10 - F43.0) will start her on something to help with the anxiety she is having, Sertraline. we will start her at the lowest dose, 25mg. This will hopefully also help with your sleep. 09/04/2024 Hepatic encephalopathy (ICD-10 - K76.82) Continue lactulose; watch for improvement in memory. 08/07/2024 Sleep difficulties (ICD-10 - G47.9) we will give her something to take for sleep, in the short term. this is only as needed. would recommend you go to bed and if you arent asleep after 30 minutes, then you can take an ambien. 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 10/01/2024 Mixed hyperlipidemia (ICD-10 - E78.2) 10/01/2024 Varicose veins of left lower extremity with pain (ICD-10 - I83.812) 08/07/2024 Encounter for screening for depression (ICD-10 - Z13.31) 10/01/2024 Gastro-esophageal reflux disease without esophagitis (ICD-10 [...] - K74.00) 10/01/2024 Other Plan Of Treatment Pending Test Test Name Order Date ASPIRATE/INJECT Shoulder Knee Hip 2023 ASPIRATE/INJECT Shoulder Knee Hip 2024 Next Appt Details Provider Name:RAJI KING, 11/14/2024 10:50:00 AM, [address], [place], [address], Provider Name:MCKENZIE VICK SON, 10/05/2025 08:00:00 AM, [address], [place], [address], Insurance Providers Payer Name Payer Address Payer Phone Subscriber Number Group Number Insured Name Patient Relationship to Insured Coverage Start Date Coverage End Date A MEDICARE [address] [place] [phone] [id number] Ifrah Trujillo Self - patient is the insured 3 [employer] [address] [address] [place] [phone] [id number] PLAN G Ifrah Trujillo Self - patient is the insured 3 Medications Administered Medication Instructions Date of Administration Dosage Notes Betamethasone 07/18/2023 2 mL [facility]:[id number] lot:[id number] exp:03/13 Medical (General) History Medical History History ICD Code Hyperlipidemia: Hypercholesterolemia; 10 year risk score was 6.4%, 07/27/20 Sleep Apnea: dx'd in 2017; (+) sleep sofy dy; has a CPAP, but does not use it Gastroesophageal Reflux Disease: since Urinary Incontinence LIVING WILL: Patient denies that she has a living will COLONOSCOPY: was last done 0 08/05/24 (Inpatient at [facility]) Internal Hemorrhoids, Colum of Rectal Varix-not bleeding. ColoGuard 08/25/21, NEGATIVE EGD: was done 08/05/24 Varic es in lower third of esophagus (inpatient at [facility]) BONE DENSITY: 08/06/20, normal. Due again in 5 years MAMMOGRAM:10/01/24 Birad 2 EYE EXAM: 03/2023 INFLUENZA VACCINE: 2022 PNEUMOCOCCAL VACCINE: 07/27/20, Prevnar 13 . 08/16/21, Pneumovax 23 TETANUS VACCINE: was last done -2015 SHINGLES VACCINE: was last done 2015. sh nadege has had both shingrix COVID-19: 2 doses of Moderna FIBROSCAN: was done 08/28/24; moderate s teatosis with cirrhosis. Surgical History Surgery Date(Month/Year) Appendectomy: at age 13; uncomplicated Fracture Repair: right wrist with plates and screws Benign breast tumor right breast age 14 Hospitalization History Reason Date(Month/Year) [facility] 07/2024
--- OUTSIDE RECORDS SUMMARY | 2024-11-13 19:03 | XMS_ITS | Patient Health Record ---
Author Organization [facility] Address [address] [place] [address] Care Team Providers Care Connection Worker Name Role Phone Ney Wagner [phone] Results Component Value Reference Range Notes Fibroscan Reviewed date:08/28/2024 11:28:56 AM Interpretation: Performing Lab: Notes/Report: Reason For Referral No Information Medications Medication SIG (Take, Route, Frequency, Duration) Notes Start Date End Date Status Simvastatin 40 MG Take 1 tablet(s) by mouth at bedtime Oral for 30 Simvastatin 40mg Tablet Take 1 tablet(s) by mouth at bedtime #30 (Thirty) tablet(s) 05/06/2012 Active Problems Problem Type SNOMED Code ICD Code Onset Dates Problem Status W/U Status Risk Notes Problem Cirrhosis of liver (05492816) Other cirrhosis of liver (K74.69) Active confirmed Problem Cirrhosis - non-alcoholic (069998348) Cirrhosis of liver without ascites, unspecified hepatic cirrhosis type (K74.60) Active confirmed Problem Steatosis of liver (742830657) Steatosis of liver (K76.0) Active confirmed Problem Familial hypercholesterolemia (865850084) Familial hypercholesterolemia (272.0) 2011 Active confirmed Inder-98 5911- Problem Gastroesophageal reflux disease (484101366) GERD (530.81) 2011 Active confirmed Inder-98 5911- Problem Female stress incontinence (66548097) Female stress incontinence (625.6) 2011 Problem resolved confirmed Inder-98 5911- Problem Lichen planus (7281852) Lichen planus (697.0) 2011 Problem resolved confirmed Inder-98 5911- Problem Screening for breast cancer (746182066) Screening for breast cancer (V76.10) 2011 Problem resolved confirmed Inder-98 5911- Problem Screening for cardiovascular system disease (procedure) (455704566) Screening for cardiovascular conditions (V81.2) 2011 Problem resolved confirmed [facility] 5911- Problem Thyroid function tests abnormal (255641287) Abnormal thyroid findings (794.5) 2011 Problem resolved confirmed [facility] 5911- Vital Signs Weight-kg 85.73 kg 08/28/2024 Height 70 in 08/28/2024 Weight 189 lbs 08/28/2024 BMI 27.12 kg/m2 08/28/2024 Encounters Encounter Location Date Provider Diagnosis [facility] [address] [place] [address] 08/28/2024 Ney Wagner Other cirrhosis of liver K74.69 [facility] [address] [place] [address] 08/28/2024 Ney Wagner Cirrhosis of liver without ascites, unspecified hepatic cirrhosis type K74.60 and Steatosis of liver K76.0 [facility] [address] [place] [address] 08/28/2024 Ney Wagner Other cirrhosis of liver K74.69 Assessments Encounter Date Diagnosis (ICD Code) Assessment Notes Treatment Notes Treatment Clinical Notes Section Notes 08/28/2024 Other cirrhosis of liver (ICD-10 - K74.69) 08/28/2024 Other cirrhosis of liver (ICD-10 - K74.69) 08/28/2024 Cirrhosis of liver without ascites, unspecified hepatic cirrhosis type (ICD-10 - K74.60) Moderate steatosis with cirrhosis 08/28/2024 Steatosis of liver (ICD-10 - K76.0) Moderate steatosis with cirrhosis Plan Of Treatment No Information Insurance Providers Payer Name Payer Address Payer Phone Subscriber Number Group Number Insured Name Patient Relationship to Insured Coverage Start Date Coverage End Date [place] [address] [place] [phone] [id number] Ifrah Trujillo Self - patient is the insured [employer] [address] [address] [place] [phone] [id number] Ifrah Trujillo Self - patient is the insured 3 Medical (General) History Surgical History Surgery Date(Month/Year) 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
[2024-11-13 21:16] LABS: Bilirubin Urine Negative (Negative); Blood Urine 1+ (Negative); Glucose Urine UA Negative (Normal); Ketones Urine Negative (Negative); Leukocyte Esterase Urine 3+ (Negative); Nitrate Urine Positive (Negative); Protein Urine Negative (Negative); Specific Gravity, Urine 1.006 (1.005-1.030); Urine Appearance Cloudy (CLEAR); Urine Color Yellow (Yellow); pH Urine 6.5 (5-7)
[2024-11-13 21:20] LABS: Add Urine Microscopic? YES; Bacteria Urine 4+ /hpf; Hyaline Casts Urine 1.21 /lpf; Squamous Epithelial Cell Urine 0-5 /hpf (0-5); WBC Urine >100 /hpf (0-5)
[2024-11-13 21:23] VITALS: BP 153/82; PULSE 53; O2SAT 96
[2024-11-13 21:32] LABS: Add Urine Culture? Yes
[2024-11-13] MEDS: cefTRIAXone 2,000 mg SDV 2000 MG IVP (21:58)
[2024-11-13 22:00] VITALS: BP 145/65; PULSE 40; O2SAT 95
[2024-11-13 22:05] LABS: INR 1.03 (0.8-1.2)
[2024-11-13 22:06] LABS: Ammonia 12 umol/L (11-51)
[2024-11-13 22:07] LABS: Alanine Aminotransferase 17 U/L (0-33); Albumin Level 4.3 g/dL (3.5-5.2); Alkaline Phosphatase 86 U/L (35-105); Anion Gap 14.7 (5-19); Aspartate Amino Transferase 23 U/L (0-32); Blood Urea Nitrogen 13 mg/dL (8-23); Calcium 10.3 mg/dL (8.5-10.5); Carbon Dioxide 27 mmol/L (22-29); Chloride 101 mmol/L (98-107); Globulin 2.9 g/dL (1.3-4.6); Glomerular Filtration Rate 71.1 mL/min (90-130); Glucose 90 mg/dL (65-115); Osmolality Calculated 286 mOsm/kg (285-295); Potassium 4.7 mmol/L (3.5-5.1); Sodium 138 mmol/L (136-145); Total Bilirubin 0.5 mg/dL (0.15-1.2); Total Protein 7.2 g/dL (6.6-8.7)
[2024-11-13 22:14] LABS: Basophils % 0.4 %; Eosinophils # 0.1 10^3/uL (0.0-0.8); Eosinophils % 1.9 %; Hematocrit 42.1 % (36-47); Lymphocytes # 1.6 10^3/uL (0.8-4.8); Mean Corpuscular HGB Conc 32.3 g/dL (30-55); Mean Corpuscular Hemoglobin 26.8 pg (27-33); Mean Corpuscular Volume 82.9 fl (85-98); Mean Platelet Volume 10.5 fL (7.4-10.4); Monocytes # 0.6 10^3/uL (0.2-0.9); Monocytes % 10.4 %; Neutrophils # 3.36 10^3/uL (1.8-7.7); Neutrophils % 59.1 %; Nucleated Red Blood Cells % 0 %; Platelet Count 130 10^3/cmm (157-399); Red Blood Count 5.08 10^6/uL (3.85-5.65); White Blood Count 5.68 10^3/uL (3.29-11.43)
[2024-11-13 23:52] VITALS: BP 146/59; PULSE 49; O2SAT 97
--- NOTE | 2024-11-14 19:22 | W.ED.FEMALGU ---
HPI - Female Genitourinary General: Chief complaint: Urogenital-Female Stated complaint: Unsteady UTI Time Seen by Provider: 11/13/24 20:52 History of Present Illness: 69 yo with Hx of liver disease on lactulose presents with approximately 1.5 weeks of dysuria and urinary frequency. Pt reports burning with urination and increased urgency, which began during a recent trip to [place]. She attempted self-treatment with cranberry supplements without improvement. Pt denies abdominal pain. She also reports a fall three weeks ago resulting in persistent right-sided rib pain, which she requests to be evaluated. No recent alcohol use. She was brought in after being stopped by police for erratic driving, which she attributes to her underlying medical issues and denies intoxication. No reported confusion or encephalopathy per provider observation. Related Data Home Medications ?Medication ?Instructions ?Recorded ?Confirmed rosuvastatin 5 mg tablet 5 mg PO DAILY 05/18/24 10/07/24 losartan 50 mg tablet 50 mg PO DAILY 08/03/24 10/07/24 carvedilol 3.125 mg tablet mg PO 09/15/24 10/07/24 ferrous sulfate 325 mg (65 mg 325 mg PO DAILY 09/15/24 10/07/24 iron) tablet (Feosol) lactulose 10 gram/15 mL oral 20 g PO TID 09/15/24 10/07/24 solution (Constulose) pantoprazole 40 mg tablet,delayed 40 mg PO 09/15/24 10/07/24 release Previous Rx's ?Medication ?Instructions ?Recorded cephalexin 250 mg capsule 250 mg PO Q6H 5 days #20 caps 11/13/24 Allergies Allergy/AdvReac Type Severity Reaction Status Date / Time No Known Allergies Allergy Verified 11/13/24 19:02 [facility] ED PFSH: Medical History History of hypertension Surgical History History of appendectomy Family History Father CAD (coronary artery disease) Diabetes mellitus, type 2 Social History Smoking and tobacco/nicotine status: never used tobacco/nicotine Alcohol intake: never Substance/Drug Use: never Physical Exam Const: COMMON NORMALS: no acute distress, patient oriented x3 and alert HENMT: COMMON NORMALS: normocephalic and atraumatic HEAD & SCALP: normocephalic and atraumatic Eye: COMMON NORMALS: Equal, round and reactive pupils present, EOMs intact bilaterally and no scleral icterus PUPIL: Yes Equal, round and reactive pupils present Resp: COMMON NORMALS: normal respiratory effort and No retractions Cardio: COMMON NORMALS: regular rate, regular rhythm and No murmurs present (Cardio) RATE: regular rate RHYTHM: regular rhythm GI: COMMON NORMALS: Normal to inspection, nondistended, normoactive bowel sounds present, Soft to palpation and non-tender PALPATION: Yes Soft to palpation Neuro: COMMON NORMALS: patient oriented x3 SENSORIUM/ORIENTATION: Yes alert Skin: COMMON NORMALS: no rashes or lesions noted GENERAL SKIN EXAM: no rashes or lesions noted Course Vital Signs: Vital signs: Vital Signs Temperature 98.0 F 11/13/24 18:55 Pulse Rate 49 L 11/13/24 23:52 Blood Pressure 146/59 11/13/24 23:52 Pulse Oximetry 97 11/13/24 23:52 Oxygen Delivery Me thod Room Air 11/13/24 18:55 MDM - Female Medical Decision Making Patient remained hemodynamically stable 30 degrees. Laboratory evaluation reveals significant evidence of UTI. Culture sent. She was given a dose of IV antibiotics and will be sent home with oral Keflex. Vital signs are stable. I do not suspect sepsis. She will be discharged in stable and improved condition Lab Data 11/13/24 21:41 11/13/24 21:41 Laboratory Results WBC 5.68 10^3/uL (3.29-11.43) 11/13/24 21:41 RBC 5.08 10^6/uL (3.85-5.65) 11/13/24 21:41 Hgb 13.60 g/dL (11.27-16.99) 11/13/24 21:41 Hct 42.1 % (36-47) 11/13/24 21:41 MCV 82.9 fl (85-98) L 11/13/24 21:41 MCH 26.8 pg (27-33) L 11/13/24 21:41 MCHC 32.3 g/dL (30-55) 11/13/24 21:41 RDW 16.0 % (12.1-15.1) H 11/13/24 21:41 Plt Count 130 10^3/cmm (157-399) L 11/13/24 21:41 MPV 10.5 fL (7.4-10.4) H 11/13/24 21:41 Neut % (Auto) 59.1 % 11/13/24 21:41 Lymph % (Auto) 28.0 % 11/13/24 21:41 [place] % (Auto) 10.4 % 11/13/24 21:41 Eos % (Auto) 1.9 % 11/13/24 21:41 Baso % (Auto) 0.4 % 11/13/24 21:41 Neut # (Auto) 3.36 10^3/uL (1.8-7.7) 11/13/24 21:41 Lymph # (Auto) 1.6 10^3/uL (0.8-4.8) 11/13/24 21:41 [place] # (Auto) 0.6 10^3/uL (0.2-0.9) 11/13/24 21:41 Eos # (Auto) 0.1 10^3/uL (0.0-0.8) 11/13/24 21:41 Baso # (Auto) 0.0 10^3/uL (0.0-0.1) 11/13/24 21:41 Nucleated RBC % (auto) 0 % 11/13/24 21:41 Nucleated RBCs # 0.0 /100WBC 11/13/24 21:41 PT 14.20 SECONDS (12.1-14.9) 11/13/24 21:41 INR 1.03 (0.8-1.2) 11/13/24 21:41 Sodium 138 mmol/L (136-145) 11/13/24 21:41 Potassium 4.7 mmol/L (3.5-5.1) 11/13/24 21:41 Chloride 101 mmol/L (98-107) 11/13/24 21:41 Carbon Dioxide 27 mmol/L (22-29) 11/13/24 21:41 Anion Gap 14.7 (5-19) 11/13/24 21:41 BUN 13 mg/dL (8-23) 06/26/25 21:41 Creatinine 0.8 mg/dL (0.5-0.9) 11/13/24 21:41 GFR Calculation 71.1 mL/min (90-130) L 11/13/24 21:41 Glucose 90 mg/dL (65-115) 11/13/24 21:41 Calculated Osmolality 286 mOsm/kg (285-295) 11/13/24 21:41 Calcium 10.3 mg/dL (8.5-10.5) 11/13/24 21:41 Total Bilirubin 0.5 mg/dL (0.15-1.2) 11/13/24 21:41 AST 23 U/L (0-32) 11/13/24 21:41 ALT 17 U/L (0-33) 11/13/24 21:41 Alkaline Phosphatase 86 U/L (35-105) 11/13/24 21:41 Ammonia 12 umol/L (11-51) 11/13/24 21:41 Total Protein 7.2 g/dL (6.6-8.7) 11/13/24 21:41 Albumin 4.3 g/dL (3.5-5.2) 11/13/24 21:41 Globulin 2.9 g/dL (1.3-4.6) 11/13/24 21:41 Urine Color Yellow (Yellow) 11/13/24 19:14 Urine Appearance Cloudy (CLEAR) A 11/13/24 19:14 Urine pH 6.5 (5-7) 11/13/24 19:14 Ur Specific [place] 1.006 (1.005-1.030) 11/13/24 19:14 Urine Protein Negative (Negative) 11/13/24 19:14 Urine Glucose (UA) Negative (Normal) 11/13/24 19:14 Urine Ketones Negative (Negative) 11/13/24 19:14 Urine Blood 1+ (Negative) A 11/13/24 19:14 Urine Nitrate Positive (Negative) A 11/13/24 19:14 Urine Bilirubin Negative (Negative) 11/13/24 19:14 Urine Urobilinogen 1.0 mg/dL (Negative) 11/13/24 19:14 Ur Leukocyte Esterase 3+ (Negative) A 11/13/24 19:14 Urine RBC 3-5 /hpf (0-2) 11/13/24 19:14 Urine WBC >100 /hpf (0-5) H 11/13/24 19:14 Ur Squamous Epith Cells 0-5 /hpf (0-5) 11/13/24 19:14 Amorphous Sediment Not Reportable 11/13/24 19:14 Urine Bacteria 4+ /hpf (NONE) H 11/13/24 19:14 Hyaline Casts 1.21 /lpf 11/13/24 19:14 No radiology studies performed this visit Discharge Plan Discharge Patient Disposition: Home Clinical Impression: Acute UTI Condition: Stable Prescriptions: New cephalexin 250 mg capsule 250 mg PO Q6H 5 Days Qty: 20 0RF No Action lactulose [Constulose] 10 gram/15 mL solution 20 g PO TID carvedilol 3.125 mg tablet PO pantoprazole 40 mg tablet,delayed release (DR/EC) 40 mg PO ferrous sulfate [Feosol] 325 mg (65 mg iron) tablet 325 mg PO DAILY rosuvastatin 5 mg tablet 5 mg PO DAILY losartan 50 mg tablet 50 mg PO DAILY Discharge Orders: Discharge ED (Routine); Ordered 11/13/24 Ordered By: Mendel Ruiz Referrals: Chase Cuadra MD [Primary Care Provider, [facility]] Discharge Diet: Usual diet Discharge Activity: Increase activity as tolerated Patient Instructions: Urinary Tract Infection in Women (ED), Patient Portal & Wally Instructions Activity Restrictions/Additional Instructions: Your urine test is convincingly positive for infection. Hopefully the antibiotics improve your symptoms swiftly. If you start to feel worse, please return the emergency department for repeat evaluation and possible admission to the hospital, however your vital signs are stable and you should be able to be treated safely at home with oral antibiotics. Print Language: Brazilian Coding Level of Care Code ED Continuous Improvement Coordinator for Ranjit Mata
== END 2024-11-13 23:25 | disposition home or self-care (01) ==
PROVIDERS: Emergency Provider Student in an Organized Health Care Education/Training Program; PCP Family Medicine
DX: N39.0 Urinary tract infection, site not specified (principal); I10 Essential (primary) hypertension
CPT/HCPCS: 36415; 80053; 81001; 82140; 85025; 85610; 87077; 87086; 87186; 96374; 99284; J0696

== ENCOUNTER → 2024-11-18 08:39 | Outpatient (BNVA) | payer MEDICARE, OTHER, SELFPAY | PROVIDERS: PCP Family Medicine; Visit Provider Anesthesiology Pain Medicine | DX: M19.011 Primary osteoarthritis, right shoulder (principal); M54.9 Dorsalgia, unspecified; M17.11 Unilateral primary osteoarthritis, right knee; M47.816 Spondylosis without myelopathy or radiculopathy, lumbar region; M51.16 Intervertebral disc disorders with radiculopathy, lumbar region | CPT/HCPCS: 73030; 99214 ==

== ENCOUNTER → 2024-12-15 08:49 | Outpatient (BNVA) | payer MEDICARE, OTHER, SELFPAY | PROVIDERS: PCP Family Medicine; Visit Provider Anesthesiology Pain Medicine | DX: M19.011 Primary osteoarthritis, right shoulder (principal); M54.9 Dorsalgia, unspecified; M17.11 Unilateral primary osteoarthritis, right knee; M47.816 Spondylosis without myelopathy or radiculopathy, lumbar region; M51.16 Intervertebral disc disorders with radiculopathy, lumbar region | CPT/HCPCS: 20610; 99214; J1010; J3490 ==

== ENCOUNTER 2024-12-18 13:34 | Outpatient (RCR) | payer MEDICARE, OTHER, SELFPAY | END 2024-12-18 23:59 | disposition home or self-care (01) | LOC: SPT 13:34 | PROVIDERS: PCP Family Medicine; Visit Provider Anesthesiology Pain Medicine | DX: M25.511 Pain in right shoulder (principal) | CPT/HCPCS: 97161 ==

== ENCOUNTER 2024-12-19 06:30 | Outpatient (RCR) | payer MEDICARE, OTHER, SELFPAY | END 2025-01-09 08:37 | disposition home or self-care (01) | LOC: SPT 06:30 | PROVIDERS: PCP Family Medicine; Visit Provider Anesthesiology Pain Medicine | DX: M25.511 Pain in right shoulder (principal) | CPT/HCPCS: 97110 ==

== ENCOUNTER → 2025-02-16 10:40 | Outpatient (BNVA) | payer MEDICARE, OTHER, SELFPAY | PROVIDERS: PCP Family Medicine; Visit Provider Anesthesiology Pain Medicine | DX: M17.11 Unilateral primary osteoarthritis, right knee (principal); M47.26 Other spondylosis with radiculopathy, lumbar region; M51.16 Intervertebral disc disorders with radiculopathy, lumbar region; M25.511 Pain in right shoulder | CPT/HCPCS: 99214 ==

== ENCOUNTER → 2025-04-20 09:55 | Outpatient (BNVA) | payer MEDICARE, OTHER, SELFPAY | PROVIDERS: PCP Family Medicine; Visit Provider Anesthesiology Pain Medicine | DX: M47.816 Spondylosis without myelopathy or radiculopathy, lumbar region (principal); M51.16 Intervertebral disc disorders with radiculopathy, lumbar region; M17.11 Unilateral primary osteoarthritis, right knee; M25.511 Pain in right shoulder | CPT/HCPCS: 99214 ==

== ENCOUNTER 2025-04-27 07:53 | Outpatient (CLI) | payer MEDICARE, OTHER, SELFPAY ==
--- NOTE | 2025-04-27 08:00 | MR_ITS ---
WS: [id number] MRI CERVICAL SPINE NONCONTRAST TECHNIQUE: Sagittal T1, T2 and STIR imaging. Axial T2, gradient, and fiesta imaging. CLINICAL INFORMATION: M54.12 - Radiculopathy, cervical region COMPARISON: None. FINDINGS: Mild spondylitic changes. Cord signal is normal. No high-grade central canal stenosis. Facet synovitis RIGHT C4-5 with periarticular edema and a facet effusion. This is likely degenerative or inflammatory. C2-C3: Normal. C3-C4: Mild disc bulge with endplate ridging. Mild LEFT greater than RIGHT bony foraminal narrowing. Mild facet arthropathy. Tiny LEFT paracentral protrusion. C4-C5: Tiny central disc osteophyte protrusion. Spinal canal is patent. Moderate facet arthropathy. RIGHT facet synovitis. RIGHT facet effusion and periarticular edema. Mild RIGHT foraminal narrowing. C5-C6: Mild disc osteophyte ridging. Mild facet arthropathy. Spinal canal and foramina are patent. C6-C7: Mild disc bulge with endplate ridging. Spinal canal and foramen are patent. Mild facet arthropathy. C7-T1: Grade 1 anterolisthesis. Spinal canal and foramen are patent. Visualized brain stem structures: Normal. Prevertebral soft tissues: Normal. MR/MR cervical spin wo con* [id number] IMPRESSION: 1. Facet synovitis RIGHT C4-5 with periarticular edema and a facet effusion. This is likely degenerative or inflammatory. 2. Mild RIGHT C4-5 foraminal narrowing. 3. No significant central canal stenosis. Cord signal is normal. 4. Mild spondylitic changes 5. A few tiny disc osteophyte protrusions C3-C4 C4-C5 C5-C6 without significan t central canal stenosis 6. Grade 1 anterolisthesis C7 on T1
== END 2025-04-27 07:54 | disposition home or self-care (01) ==
LOC: RAD 07:54
PROVIDERS: PCP Family Medicine; Visit Provider Anesthesiology Pain Medicine
DX: M54.12 Radiculopathy, cervical region (principal); M50.31 Other cervical disc degeneration, high cervical region; M48.02 Spinal stenosis, cervical region; M25.78 Osteophyte, vertebrae; M47.812 Spondylosis without myelopathy or radiculopathy, cervical region; M43.13 Spondylolisthesis, cervicothoracic region
CPT/HCPCS: 72141

== ENCOUNTER → 2025-05-04 09:03 | Outpatient (BNVA) | payer MEDICARE, OTHER, SELFPAY | PROVIDERS: PCP Family Medicine; Visit Provider Specialist | DX: M25.511 Pain in right shoulder (principal); G89.29 Other chronic pain | CPT/HCPCS: 73030; 99204 ==